=== PATIENT | female | born 2000 | race Caucasian/White ===

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

== ENCOUNTER → 2020-12-01 14:49 | Outpatient (CLI) | payer OTHER, SELFPAY | PROVIDERS: PCP Family Medicine; Visit Provider Family Medicine | DX: U07.1 COVID-19 (principal) | CPT/HCPCS: 87635; U0005; U0003 ==

== ENCOUNTER 2022-06-19 17:07 | Emergency (ER) | payer BC, SELFPAY ==
[2022-06-19 17:10] VITALS: BP 121/78; PULSE 110; RESP 17; TEMP 36.4; O2SAT 100; BMI 17.7
--- NOTE | 2022-06-19 17:26 | ED.VIS.FEGU ---
HPI HPI - Female History of Present Illness Chief Complaint: Vag Bld, Preg Informant: patient Narrative Narrative: Patient is G1, P0, Ab0 presenting with some mild vaginal bleeding. She reports some dark-colored discharge that started today. She had some mild cramping. She believes she is approximately 9 weeks . PFSH PFSH Medical History no medical history no medical history Home Medications fluoxetine 20 mg capsule 40 mg PO DAILY 06/13/17 [History Last Taken 06/13/17] lorazepam 0.5 mg tablet 0.5 mg PO TID PRN Anxiety ##10 07/09/18 [Rx Last Taken Unknown] ondansetron 4 mg disintegrating tablet 4 mg PO Q8H PRN PRN Nausea ##10 07/09/18 [Rx Last Taken Unknown] sulfamethoxazole 800 mg-trimethoprim 160 mg tablet 1 tab PO BID #14 tabs 06/08/19 [Rx Last Taken Unknown] Allergy/AdvReac Type Severity Reaction Status Date / Time No Known Allergies Allergy Verified 06/19/22 17:09 Surgical History no surgical history no surgical history Social History Smoking Status: Former smoker ROS ROS ED Constitutional Constitutional ED: Denies chills or fever(s) Eyes Eyes: Denies change in vision or discharge from eye(s) ENT ENT ED: Denies discharge from eye(s), rhinorrhea or sore throat Cardiovascular Cardiovascular: Denies chest pain or palpitations Respiratory/Chest Respiratory/Chest: Denies cough or dyspnea Gastrointestinal Gastrointestinal: Reports abdominal pain; Denies diarrhea, nausea or vomiting Genitourinary Genitourinary ED: Reports other Details: Vaginal bleeding ; Denies difficulty urinating or dysuria Musculoskeletal Musculoskeletal: Denies back pain or extremity pain Integumentary Denies Abrasions or rash Neurologic Neurologic: Denies headache(s) or weakness Psychiatric Psychiatric: Denies anxiety or depression Allergic/Immunologic Allergic/Immunologic ED: Denies lip swelling or urticaria EXAM Physical Exam Const Vital Signs: 06/19/22 17:10 Temperature 97.6 F L Temperature Source Temporal Pulse Rate 110 H Respiratory Rate 17 Blood Pressure 121/78 H Blood Pressure Mean 92 Pulse Ox 100 Oxygen Delivery Method Room Air Positive well nourished and well developed General Appearance ED: well developed HEENT Reports normocephalic and head/scalp atraumatic Eyes PERRL and EOMs intact bilaterally Neck supple Chest Wall inspection of chest normal and palpation of chest normal Resp normal respiratory effort and clear to auscultation bilaterally Cardio regular rate and regular rhythm GI soft to palpation and non-tender Auscultation: hypoactive bowel sounds Palpation: soft Back/Spine no CVA tenderness Extremity normal to inspection Neuro oriented x3 and no sensory deficits noted Sensorium / Orientation: alert Motor Exam: strength 5/5 throughout Psych mental status grossly normal Skin no rashes or lesions noted MDM MDM MDM Narrative Medical decision making narrative: Quant and blood type obtained. Pelvic ultrasound ordered. Lab Data Attestation: I reviewed the patient's lab results. Labs: Laboratory Results - last 24 hr 06/19/22 06/19/22 17:45 17:45 HCG, Quant 1327 H Blood Type O POSITIVE Radiography Diagnostic Testing: Clinical Impression(s) from Imaging Studies Obstetrics Ultrasound 06/19/22 17:54 IMPRESSION: Small fluid collection within the uterus which is low lying. Differential diagnosis includes early IUP with embryonic pole and yolk sac below the limits of sonographic resolution, blighted ovum and pseudo-gestational sac. Correlation with serum quantitative beta-hCG and follow up ultrasound is recommended. The possibility of ectopic cannot be excluded on the basis of this exam. There is 17mm right ovarian possible hemorrhagic cyst. This is less likely an ectopic (one in [id number] chance of a heterotopic ). Electronically Signed: Cedric Santillan MD at 19:54 EDT Reading Location ID and State: [facility] / [place] , Service support , Treatment and Re-Evaluation Narrative: Patient's quant is 1327. Her blood type is O+. Ultrasound reveals a small fluid collection in the uterus which is low-lying. This may be a early intrauterine with embryonic pole and yolk sac below limits of sonographic resolution. This also could represent a blighted ovum and pseudo gestational sac. I spoke with Dr. Kimberlee Tanner, on-call for [facility]. Patient is to follow-up with the office on Monday. They will repeat the quant level at that time. Patient now tells me she already has appointment scheduled at 10 AM on [place]. Return instructions have been given. Discharge Plan Triage Chief Complaint: Vag Bld, Preg ED Provider: Conchis Hopkins Dx/Rx/DC Orders Clinical Impression: Threatened miscarriage Instructions: ED Possible Miscarriage ... Prescriptions: No Action fluoxetine 20 MG capsule 40 mg PO DAILY ondansetron 4 MG tablet 4 mg PO Q8H PRN PRN (Reason: Nausea) Qty: 10 0RF lorazepam 0.5 MG tablet 0.5 mg PO TID PRN (Reason: Anxiety) Qty: 10 0RF sulfamethoxazole-trimethoprim 1 TABLET tablet 1 tab PO BID Qty: 14 0RF Primary Care Provider: Vini Hussein Referrals: Vini Hussein MD [Primary Care Provider] - Michell Pop REDUCING SALON ATTENDANT, REDUCING SALON ATTENDANT-C [Non-Staff] - [facility] appointment Disposition Disposition: Home, Self Care
--- NOTE | 2022-06-19 17:54 | US_ITS ---
STUDY: FIRST TRIMESTER OBSTETRICAL ULTRASOUND REASON FOR EXAM: Female, 22 years old. Other, brown discharge, lmp 04/10/22- certain w/ regular periods. hcg drawn today 1327. bleeding TECHNIQUE: Transvaginal US was obtained to better visualized the ovaries. TECHNICAL QUALITY: Adequate. PRIOR ULTRASOUND: None. FINDINGS: There is a gestational sac in the lower uterine segment. The mean sac diameter (MSD) measures 5.5 mm, indicating an estimated gestational age (EGA) of 5 weeks, 2 days. The gestational sac shape is within normal limits. There is no demonstrated yolk sac. The placenta is non-visualized. There is no demonstrated embryo ( pole). The estimated gestation age (EGA) by LMP is 10 weeks, 0 days. The estimated date of delivery (LISETTE) by LMP is 4.2.23. The estimated gestation age (EGA) by US is 5 weeks, 2 days. The estimated date of delivery (LISETTE) by US is 5.5.23. The uterus measures 7.8 x 4.6 cm. There is no demonstrated uterine fibroid. The cervix is closed. The right ovary is 3.2cm. There is 17mm right ovarian possible hemorrhagic cyst. There is no visualized right adnexal mass or complex lesion. The left ovary measures 2.8 cm. There is no left ovarian cyst. There is no visualized left adnexal mass or complex lesion. There is no fluid in the cul de sac. US/Transvaginal w/Preg US IMPRESSION: Small fluid collection within the uterus which is low lying. Differential diagnosis includes early IUP with embryonic pole and yolk sac below the limits of sonographic resolution, blighted ovum and pseudo-gestational sac. Correlation with serum quantitative beta-hCG and follow up ultrasound is recommended. The possibility of ectopic cannot be excluded on the basis of this exam. There is 17mm right ovarian possible hemorrhagic cyst. This is less likely an ectopic (one in 13544 chance of a heterotopic ). Electronically Signed: Cedric Santillan MD at 19:54 EDT ,
[2022-06-19 18:30] LABS: hCG Titer Quant., Serum 1327 mIU/mL (1-3)
== END 2022-06-19 21:00 | disposition home or self-care (01) ==
PROVIDERS: Emergency Provider Emergency Medicine; PCP Family Medicine; Visit Provider Emergency Medicine
DX: O20.0 Threatened abortion (principal); Z3A.09 9 weeks gestation of pregnancy; Z79.899 Other long term (current) drug therapy; Z87.891 Personal history of nicotine dependence
CPT/HCPCS: 76817; 84702; 86900; 86901; 99283; A4216

== ENCOUNTER 2023-09-25 17:56 | Emergency (ER) | payer BC, SELFPAY ==
[2023-09-25 17:56] VITALS: BP 124/81; PULSE 85; RESP 16; TEMP 36.4; O2SAT 100; BMI 17.9
--- NOTE | 2023-09-25 19:00 | US_ITS ---
STUDY: FIRST TRIMESTER OBSTETRICAL ULTRASOUND REASON FOR EXAM: Female, 23 years old bleeding in LMP: 08/17/2023 TECHNIQUE: Transvaginal TECHNICAL QUALITY: Adequate. PRIOR ULTRASOUND: None. FINDINGS: There is visualization of a single gestational sac in a normal intrauterine position. The mean sac diameter (MSD) measures 6 mm, indicating an estimated gestational age (EGA) of 5 weeks, 2 days. The gestational sac shape is within normal limits. There is a visualized yolk sac. The yolk sac measures 2 mm. The placenta is non-visualized. There is no demonstrated embryo ( pole).. The estimated gestation age (EGA) by LMP is 5 weeks, 4 days. The estimated date of delivery (LISETTE) by LMP is 05/23/2024. The estimated gestation age (EGA) by US is 5 weeks, 2 days. The estimated date of delivery (LISETTE) by US is 05/25/2024. The uterus measures 7.9 x 4.3 x 3.57. There is no demonstrated uterine fibroid. The cervix is closed. The right ovary measures 3.3 x 1.8 x 1.6 cm. There is no right ovarian cyst. There is no visualized right adnexal mass or complex lesion. The left ovary measures 4.4 x 3.3 x 2.6 cm. 2.2 cm oval anechoic mass with increased transmission of the left ovary consistent with a thecal lutein cyst. There is no visualized left adnexal mass or complex lesion. There is no fluid in the cul de sac. US/Transvaginal w/Preg US IMPRESSION: Early intrauterine gestational sac of 5 weeks 2 days but no identifiable pole. Differential diagnosis includes an early intrauterine or an incomplete . Correlation with serial beta-hCG measurements is recommended. Electronically Signed: Alex Mares MD at 20:58 EST ,
--- NOTE | 2023-09-25 19:01 | ED.VIS.FEGU ---
HPI <SARA Cruz - Last Filed: 09/25/23 21:07> HPI - Female History of Present Illness Chief Complaint: Vag Bld, Preg Narrative Narrative: 23-year-old A1 states she is approximately 6 weeks by dates and developed vaginal bleeding this morning. She had pink blood on the toilet paper when she wiped this morning and later in the day red blood filled the toilet bowl and she developed abdominal cramping. No clots. No fever, chills, nausea or vomiting. She sees COMMISSARY REPRESENTATIVE Martha Farrell at [facility]. She had an ultrasound 1 week ago but it was too early to see anything. She states they checked blood work last week and her quant went from 100s to 400s. Her only other was a first trimester miscarriage. PFSH <SARA Cruz - Last Filed: 09/25/23 21:07> PFS Home Medications fluoxetine 20 mg capsule 40 mg PO DAILY 06/13/17 [History Last Taken 06/13/17] lorazepam 0.5 mg tablet 0.5 mg PO TID PRN Anxiety #10 tabs 07/09/18 [Rx Last Taken Unknown] ondansetron 4 mg disintegrating tablet 4 mg PO Q8H PRN PRN Nausea #10 tabs 07/09/18 [Rx Last Taken Unknown] sulfamethoxazole 800 mg-trimethoprim 160 mg tablet 1 tab PO BID #14 tabs 06/08/19 [Rx Last Taken Unknown] Allergy/AdvReac Type Severity Reaction Status Date / Time No Known Allergies Allergy Verified 09/25/23 17:59 Social History Smoking Status: Former smoker ROS <SARA Cruz - Last Filed: 09/25/23 21:07> ROS ED ROS Narrative Constitutional: Negative for fever, chills, malaise. GI: Positive for abdominal pain. Negative for nausea, vomiting, diarrhea, constipation, melena, hematochezia. : Negative for dysuria, hematuria or frequency. EXAM <SARA Cruz - Last Filed: 09/25/23 21:07> Physical Exam Narrative Exam Narrative: CONST: Patient sitting in no acute distress. EYES: Normal inspection. NECK: Normal inspection. RESP: No respiratory distress, CTAB. CVS: Regular rate and rhythm, no murmur, no gallop. ABD: Soft and nontender, no guarding or rebound, nondistended. Pelvic: Normal external genitalia, small amount of dark red/brown discharge from the cervical os but it does not appear open. SKIN: Color normal, no rash, warm, dry, intact. EXTREMITIES: Normal appearance, no pedal edema. NEURO: Oriented x4. PSYCH: Normal affect. Const Vital Signs: 09/25/23 17:56 09/25/23 21:24 Temperature 97.6 F L Temperature Source Temporal Pulse Rate 85 81 Respiratory Rate 16 16 Blood Pressure 124/81 H 118/62 Blood Pressure Mean 95 80 Pulse Ox 100 100 Oxygen Delivery Method Room Air <Indra Taylor MD - Last Filed: 09/25/23 23:07> Physical Exam Const Vital Signs: 09/25/23 17:56 09/25/23 21:24 Temperature 97.6 F L Temperature Source Temporal Pulse Rate 85 81 Respiratory Rate 16 16 Blood Pressure 124/81 H 118/62 Blood Pressure Mean 95 80 Pulse Ox 100 100 Oxygen Delivery Method Room Air MDM <SARA Cruz - Last Filed: 09/25/23 21:07> [facility] MDM Narrative Medical decision making narrative: History gathered from: Patient and mom Patient thinks she is 6 weeks and is having abdominal cramping and bleeding. She appears well and nontoxic. Vital signs stable. Abdomen is soft and nontender. CBC is within normal limits. Hemoglobin 13.6. hCG quant is 2264. Blood type is O+ so she doesn't need RhoGAM. Pelvic exam showed dark reddish-brown blood and no evidence of active bleeding. Somewhat limited visualization but I believe her cervical os is closed. Ultrasound shows early intrauterine gestational sac of 5 weeks 2 days but no identifiable pole. Differential diagnosis includes early intrauterine or incomplete . A call has been placed to her COMMISSARY REPRESENTATIVE to arrange close follow-up. Case was discussed with on-call COMMISSARY REPRESENTATIVE at her office Dr. Gallegos. States their office will be in touch to arrange close follow-up. I told her there is 1+ bacteria she recommended just culturing but no antibiotics at this point. Patient was informed of findings and all questions answered. She was discharged in stable condition. Differential: Threatened miscarriage, complete miscarriage, ectopic Lab Data Attestation: I reviewed the patient's lab results. Labs: Laboratory Results - last 24 hr 09/25/23 09/25/23 18:58 19:16 WBC 9.7 RBC 4.21 Hgb 13.6 Hct 39.8 MCV 94.5 MCH 32.3 H MCHC 34.2 RDW Std Deviation 39.8 RDW Coeff of Annie 11.6 Plt Count 200 MPV 9.9 Immature Gran % (Auto) 0.300 Neut % (Auto) 63.7 Lymph % (Auto) 28.1 [place] % (Auto) 7.0 Eos % (Auto) 0.3 Baso % (Auto) 0.6 Absolute Neuts (auto) 6.2 Absolute Lymphs (auto) 2.72 Nucleated RBC % 0 HCG, Quant 2264 H Urine Color Yellow Urine Clarity Clear Urine pH 5.0 Ur Specific [place] 1.020 Urine Protein Negative Urine Glucose (UA) Normal Urine Ketones 150 A* Urine Occult Blood 250 H Urine Nitrite Negative Urine Bilirubin Negative Urine Urobilinogen Normal Ur Leukocyte Esterase 25 H Urine RBC 5-10 SEEN Urine WBC 0-5 SEEN Ur Squamous Epith Cells 0-5 SEEN Urine Bacteria 1+ Urine Mucus 1+ Blood Type O POSITIVE Radiography Diagnostic Testing: Clinical Impression(s) from Imaging Studies Obstetrics Ultrasound 09/25/23 19:00 IMPRESSION: Early intrauterine gestational sac of 5 weeks 2 days but no identifiable pole. Differential diagnosis includes an early intrauterine or an incomplete . Correlation with serial beta-hCG measurements is recommended. Electronically Signed: Alex Mares MD at 20:58 EST , <Indra Taylor MD - Last Filed: 09/25/23 23:07> [facility] MDM Narrative Medical decision making narrative: History gathered from: Patient and mom Patient thinks she is 6 weeks and is having abdominal cramping and bleeding. She appears well and nontoxic. Vital signs stable. Abdomen is soft and nontender. CBC is within normal limits. Hemoglobin 13.6. hCG quant is 2264. Blood type is O+ so she doesn't need RhoGAM. Pelvic exam showed dark reddish-brown blood and no evidence of active bleeding. Somewhat limited visualization but I believe her cervical os is closed. Ultrasound shows early intrauterine gestational sac of 5 weeks 2 days but no identifiable pole. Differential diagnosis includes early intrauterine or incomplete . A call has been placed to her COMMISSARY REPRESENTATIVE to arrange close follow-up. Case was discussed with on-call COMMISSARY REPRESENTATIVE at her office Dr. Gallegos. States their office will be in touch to arrange close follow-up. I told her there is 1+ bacteria she recommended just culturing but no antibiotics at this point. Patient was informed of findings and all questions answered. She was discharged in stable condition. Differential: Threatened miscarriage, complete miscarriage, ectopic Dr. Taylor: I have personally performed a face to face assessment of the patient and have reviewed the SARINA Note. I performed a substantive portion of the visit including all aspects of the following. My choi findings include: History is patient approximately 6 weeks gestation with pelvic pain and reported vaginal bleeding/pink-tinged. Exam is afebrile. Vital signs noted. Regular rate and rhythm. Lungs clear to auscultation bilaterally. Abdomen soft and nontender without rebound or guarding. Normoactive bowel sounds. Medical Decision Making: Check labs. Check quantitative hCG. Check pelvic ultrasound. Check pelvic examination. Follow-up with COMMISSARY REPRESENTATIVE after discussion. Discharge. Other additions or changes: [None] History & Record Review Discussion w/independent historian: Patient Additional record(s) reviewed:: Prior ED visit Lab Data Labs: Laboratory Results - last 24 hr 09/25/23 09/25/23 18:58 19:16 WBC 9.7 RBC 4.21 Hgb 13.6 Hct 39.8 MCV 94.5 MCH 32.3 H MCHC 34.2 RDW Std Deviation 39.8 RDW Coeff of Annie 11.6 Plt Count 200 MPV 9.9 Immature Gran % (Auto) 0.300 Neut % (Auto) 63.7 Lymph % (Auto) 28.1 [place] % (Auto) 7.0 Eos % (Auto) 0.3 Baso % (Auto) 0.6 Absolute Neuts (auto) 6.2 Absolute Lymphs (auto) 2.72 Nucleated RBC % 0 HCG, Quant 2264 H Urine Color Yellow Urine Clarity Clear Urine pH 5.0 Ur Specific [place] 1.020 Urine Protein Negative Urine Glucose (UA) Normal Urine Ketones 150 A* Urine Occult Blood 250 H Urine Nitrite Negative Urine Bilirubin Negative Urine Urobilinogen Normal Ur Leukocyte Esterase 25 H Urine RBC 5-10 SEEN Urine WBC 0-5 SEEN Ur Squamous Epith Cells 0-5 SEEN Urine Bacteria 1+ Urine Mucus 1+ Blood Type O POSITIVE Radiography Diagnostic Testing: Clinical Impression(s) from Imaging Studies Obstetrics Ultrasound 09/25/23 19:00 IMPRESSION: Early intrauterine gestational sac of 5 weeks 2 days but no identifiable pole. Differential diagnosis includes an early intrauterine or an incomplete . Correlation with serial beta-hCG measurements is recommended. Electronically Signed: Alex Mares MD at 20:58 EST , Discharge Plan Triage Chief Complaint: Vag Bld, Preg ED Midlevel Provider: Kenya Montero ED Provider: Indra Taylor Dx/Rx/DC Orders Clinical Impression: Threatened Instructions: Miscarriage Threatened Prescriptions: No Action fluoxetine 20 MG capsule 40 mg PO DAILY ondansetron 4 MG tablet 4 mg PO Q8H PRN PRN (Reason: Nausea) Qty: 10 0RF lorazepam 0.5 MG tablet 0.5 mg PO TID PRN (Reason: Anxiety) Qty: 10 0RF sulfamethoxazole-trimethoprim 1 TABLET tablet 1 tab PO BID Qty: 14 0RF Primary Care Provider: Vini Hussein Referrals: Vini Hussein MD [Primary Care Provider] - Activity Restrictions/Additional Instructions: Call your COMMISSARY REPRESENTATIVE in the morning or send them a [employer] message and they will give you instructions on when to follow-up for repeat blood work. Disposition Disposition: Home, Self Care Discharge Date/Time: 09/25/23 21:25
[2023-09-25 19:26] LABS: Absolute Lymphocyte Count 2.72 X10^3/uL (0.83-4.51); Absolute Neutrophil Count 6.2 X10^3/uL (2.0-7.7); Basophil# 0.06 X10^3/uL; Basophil% 0.6 % (0-1); Eosinophil# 0.03 X10^3/uL; Eosinophils% 0.3 % (0-5); Hematocrit 39.8 % (37-47); Hemoglobin 13.6 g/dL (12.0-15.0); Lymphocyte # 2.72 X10^3/ul (0.83-4.51); Lymphocyte % 28.1 % (19-41); Mean Corp Hgb Conc 34.2 g/dL (32-36); Mean Corpuscular Hgb 32.3 pg (27.0-32.0); Mean Corpuscular Volume 94.5 fL (81-99); Mean Platelet Vol. 9.9 fl (6.2-12.0); Monocyte# 0.68 X10^3/uL; NRBC Flagged by Analyzer 0 % (0-5); Neutrophil # 6.15 X10^3/uL (2.7-7.7); Neutrophil % 63.7 % (47-70); Platelet Count 200 K/mm3 (150-450); RBC Distribution Width CV 11.6 % (11.6-14.6); RBC Distribution Width SD 39.8 fl (35.1-43.9); Red Blood Count 4.21 M/mm3 (4.2-5.4); White Blood Count 9.7 K/mm3 (4.4-11.0)
[2023-09-25] MEDS: Acetaminophen 500 MG Tablet 1000 MG PO (19:30)
[2023-09-25 19:44] LABS: Color, Urine Yellow (Yellow); Glucose, Dipstick Normal (Normal); Leukocyte Esterase-Dipstick 25 /ul (Negative); Nitrite-Dipstick Negative (Negative); Occult Blood-Urine 250 /ul (Negative); Protein-Dipstick Negative (Negative); Urine Bilirubin Dipstick Negative (Negative); Urine Clarity Clear (Clear); Urine Urobilinogen Normal (Normal)
[2023-09-25 20:01] LABS: hCG Titer Quant., Serum 2264 mIU/mL (1-3)
[2023-09-25 20:02] LABS: Ketone-Dipstick 150 mg/dl (Negative)
[2023-09-25 20:03] LABS: Bacteria 1+ /hpf (None Seen); Mucous, Urine 1+ /hpf (<or=2+); Red Blood Cells-Urine 5-10 SEEN /hpf (0-5); Squamous Epithelial Cells - UA 0-5 SEEN /hpf (5-10); White Blood Cells 0-5 SEEN /hpf (0-5)
[2023-09-25 21:24] VITALS: BP 118/62; PULSE 81; RESP 16; O2SAT 100
== END 2023-09-25 21:25 | disposition home or self-care (01) ==
PROVIDERS: Physician Assistant; Emergency Provider Emergency Medicine; PCP Family Medicine; Visit Provider Emergency Medicine
DX: O20.0 Threatened abortion (principal); O26.891 Other specified pregnancy related conditions, first trimester; Z87.891 Personal history of nicotine dependence; Z3A.01 Less than 8 weeks gestation of pregnancy; R10.9 Unspecified abdominal pain
CPT/HCPCS: 76817; 81001; 84702; 85025; 86900; 86901; 87086; 99283; A4216

== ENCOUNTER 2023-11-04 16:09 | Emergency (ER) | payer BC, SELFPAY ==
[2023-11-04 16:12] VITALS: BP 111/70; PULSE 82; RESP 16; TEMP 36.5; O2SAT 100; BMI 17.5
--- NOTE | 2023-11-04 16:28 | ED.VIS.FEGU ---
HPI HPI - Female History of Present Illness Chief Complaint: Informant: patient Associated Symptoms P: 1 Ab: 1 (spontaneous) Narrative Narrative: Patient states she is 11 weeks by dates and has been having an unusual vaginal discharge for the past week or so, started getting some cramping today and thought that there was a very scant amount of blood in some of the discharge at 1 point. It is mucousy and yellowish otherwise. The cramping is more to the left side. She denies any syncope, nausea, vomiting, urinary symptoms. The cramping radiates into her low back. She denies any janelle vaginal bleeding. She follows with Martha Farrell at [facility]. She is already had an ultrasound for this baby showed an IUP. Denies any other systemic symptoms. Cramping was gradual in onset. PFSH PFSH Home Medications fluoxetine 20 mg capsule 40 mg PO DAILY 06/13/17 [History Last Taken 06/13/17] lorazepam 0.5 mg tablet 0.5 mg PO TID PRN Anxiety #10 tabs 07/09/18 [Rx Last Taken Unknown] ondansetron 4 mg disintegrating tablet 4 mg PO Q8H PRN PRN Nausea #10 tabs 07/09/18 [Rx Last Taken Unknown] sulfamethoxazole 800 mg-trimethoprim 160 mg tablet 1 tab PO BID #14 tabs 06/08/19 [Rx Last Taken Unknown] Allergy/AdvReac Type Severity Reaction Status Date / Time No Known Allergies Allergy Verified 11/04/23 16:11 Social History Smoking Status: Former smoker ROS ROS ED Constitutional Constitutional ED: Denies chills or fever(s) Cardiovascular Cardiovascular: Denies chest pain or leg edema Respiratory/Chest Respiratory/Chest: Denies dyspnea Gastrointestinal Gastrointestinal: Reports abdominal pain; Denies diarrhea, nausea or vomiting Genitourinary Genitourinary ED: Denies dysuria or hematuria Musculoskeletal Musculoskeletal: Reports back pain; Denies neck pain Neurologic Neurologic: Denies headache(s), paresthesias or weakness EXAM Physical Exam Const Vital Signs: 11/04/23 16:12 Temperature 97.7 F L Temperature Source Temporal Pulse Rate 82 Respiratory Rate 16 Blood Pressure 111/70 Blood Pressure Mean 83 Pulse Ox 100 Oxygen Delivery Method Room Air Positive well nourished and well developed General Appearance ED: well developed and NAD HEENT Reports moist mucous membranes Eyes PERRL and EOMs intact bilaterally Neck supple Resp normal respiratory effort and clear to auscultation bilaterally Cardio regular rate, regular rhythm and no murmurs GI soft to palpation and non-distended GI Narrative: Mild subjective diffuse pelvis tenderness that the patient states is a little worse on the left. No guarding or rebound. Auscultation: normoactive bowel sounds Back/Spine no CVA tenderness Extremity normal to inspection and full ROM Neuro oriented x3, CN's II-XII intact bilaterally and no sensory deficits noted Motor Exam: strength 5/5 throughout Psych mental status grossly normal Skin no rashes or lesions noted and no wounds MDM MDM MDM Narrative Medical decision making narrative: Old measurement of her blood type shows that she is a positive so RhoGAM not indicated. I did a bedside ultrasound of baby/fetus, there is plenty of good movement and heart tones are 166. Reassured patient. I discussed with Dr. Tanner, she was on for OB and agrees patient can be discharged home with close outpatient follow-up does not recommend any emergent testing on discharge right now which sounds like a normal discharge from what I describe. The patient confirms to me that she has had no recent exposures that she considers high risk for another STD, and although she was probably tested for GC/chlamydia in the office initially, she is seen at the [facility] and I do not have those records available right now. Patient reassured and advised to follow-up as an outpatient. History & Record Review Additional record(s) reviewed:: Prior labs (Blood type O+) Discharge Plan Triage Chief Complaint: ED Provider: Junior Short Dx/Rx/DC Orders Clinical Impression: Vaginal discharge during in first trimester, Pelvic pain affecting in first trimester, antepartum Instructions: ED Abdominal Pain, Early Prescriptions: No Action fluoxetine 20 MG capsule 40 mg PO DAILY ondansetron 4 MG tablet 4 mg PO Q8H PRN PRN (Reason: Nausea) Qty: 10 0RF lorazepam 0.5 MG tablet 0.5 mg PO TID PRN (Reason: Anxiety) Qty: 10 0RF sulfamethoxazole-trimethoprim 1 TABLET tablet 1 tab PO BID Qty: 14 0RF Primary Care Provider: Vini Hussein Referrals: Martha Farrell CNM [Med Staff - Adv Practice Prof] - 3-5 Days Vini Hussein MD [Primary Care Provider] - Disposition Disposition: Home, Self Care
--- OUTSIDE RECORDS SUMMARY | 2023-11-04 16:32 | XMS RPT_ITS | CCD ---
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 Name Role Phone Eliezer Leo MD Primary Care Provider Colby Hussein MD Primary Care Provider Eliezer Leo MD Primary Care Provider Colby Hussein MD Primary Care Provider DAYNA FARRELL Referring Unavailable COLBY HUSSEIN Primary Care Unavailabl e DAYNA FARRELL Attending Unavailable DAYNA FARRELL Referring Unavailable COLBY HUSSEIN Primary Care Unavailabl e DINAH DAYNA Referring Unavailable JJ GORMAN Attending Unavailable COLBY HUSSEIN Primary Care Unavailabl DARYN Millan Referring Unavailable COLBY HUSSEIN Primary Care Unavailabl DARYN Millan Referring Unavailable COLBY HUSSEIN Primary Care Unavailabl e DINAH DAYNA Referring Unavailable COLBY HUSSEIN Primary Care Unavailabl e DAYNA FARRELL Referring Unavailable COLBY HUSSEIN Primary Care Unavailabl e DAYNA FARRELL Attending Unavailable DAYNA FARRELL Referring Unavailable COLBY HUSSEIN Primary Care Unavailabl e DAYNA FARRELL Attending Unavailable COLBY HUSSEIN Primary Care UnavailELIEZER Mcmahan Primary Care Unavailable ELIEZER LEO Primary Care Unavailable DAYNA FARRELL Attending Unavailable COLBY HUSSEIN Primary Care Unavailabl JADE Sharma Attending Unavailable COLBY HUSSEIN Primary Care Unavailabl e Medications Current Medications Medication Drug Class(es) Dates Sig (Normalized) Sig (Original) predniSONE 10 mg oral tablet (1 source) Start: 06-14-2023 End: 06-21-2023 take 4 tablets by mouth once daily, then take 2 tablets by mouth once daily, then take 1 tablet by mouth once daily predniSONE (DELTASONE) 10 mg tablet Indications: Rash of face Take 4 tablets by mouth once daily for 3 days, THEN 2 tablets once daily for 2 days, THEN 1 tablet once daily for 2 days. Take with food.. 18 tablet 0 06/14/2023 06/21/2023 Active Completed/Discontinued Medications Medication Drug Class(es) Dates Sig (Normalized) Sig (Original) metroNIDAZOLE 500 mg oral tablet (2 sources) Nitroimidazole Antimicrobial Start: 08-31-2022 End: 09-07-2022 take 1 tablet by mouth twice daily metroNIDAZOLE (FLAGYL) 500 mg tablet Indications: BV (bacterial vaginosis) Take 1 tablet by mouth twice daily for 7 days. 14 tablet 0 08/31/2022 09/07/2022 Problems Active Problems Problem Classification Problem Date Documented Date Episodic/Chronic Anxiety disorders (12 sources) Anxiety disorder; Translations: [Anxiety disorder, unspecified] Onset: 02-07-2014 02-07-2014 Chronic Disorders usually diagnosed in infancy, childhood, or adolescence (12 sources) Attention deficit hyperactivity disorder, predominantly inattentive type; Translations: [Other specified behavioral and emotional disorders with onset usually occurring in childhood and adolescence] Onset: 02-07-2014 02-07-2014 Chronic Hemorrhage during ; abruptio placenta; placenta previa (1 source) Threatened miscarriage; Translations: [Threatened ] Episodic Inflammatory diseases of female pelvic organs (1 source) Bacterial vaginosis; Translations: [Acute vaginitis] Episodic Menstrual disorders (20 sources) Irregular periods; Translations: [Irregular menstruation, unspecified] Onset: 07-03-2014 07-03-2014 Chronic Mood disorders (12 sources) Depressive disorder; Translations: [Depression] Onset: 12-27-2012 10-11-2021 Chronic Other complications of (3 sources) High risk ; Translations: [Supervision of other high risk pregnancies, first trimester] Onset: 09-18-2023 09-18-2023 Episodic Other complications of (1 source) Spotting per vagina in ; Translations: [Spotting complicating , first trimester] 09-25-2023 Episodic Other complications of (1 source) Spotting complicating , first trimester; Translations: [Spotting complicating , first trimester] Onset: 10-02-2023 Episodic Other female genital disorders (2 sources) Vaginal bleeding; Translations: [Postcoital and contact bleeding] Chronic Other and delivery including normal (4 sources) Normal ; Translations: [Encounter for supervision of normal first , unspecified trimester] Onset: 10-03-2023 Episodic Other skin disorders (1 source) Eruption; Translations: [Rash and other nonspecific skin eruption] 06-14-2023 Episodic Other upper respiratory infections (1 source) Sore throat symptom; Translations: [Acute pharyngitis, unspecified] Episodic Residual codes; unclassified (3 sources) H/O: miscarriage; Translations: [Personal history of other complications of , childbirth and the puerperium] Onset: 09-18-2023 09-18-2023 Episodic Residual codes; unclassified (1 source) 10 weeks gestation of ; Translations: [10 weeks gestation of ] Onset: 10-11-2023 Episodic Residual codes; unclassified (1 source) 8 weeks gestation of ; Translations: [8 weeks gestation of ] Onset: 10-03-2023 Episodic Spontaneous (1 source) with abortive outcome; Translations: [Complete or unspecified spontaneous without complication] Episodic Substance-related disorders (13 sources) History of drug abuse; Translations: [Other psychoactive substance abuse, in remission] Onset: 06-16-2022 Chronic Past or Other Problems Problem Classification Problem Date Documented Da te Episodic/Chronic Malaise and fatigue (12 sources) Fatigue; Translations: [Other fatigue] Onset: 09-20-2013 09-20-2013 Episodic Other skin disorders (12 sources) Acne; Translations: [Acne, unspecified] Onset: 12-27-2012 12-27-2012 Episodic Screening and history of mental health and substance abuse codes (20 sources) H/O: depression; Translations: [Personal history of other mental and behavioral disorders] Onset: 06-16-2022 Episodic Results Test Name Value Interpretation Reference Range Facil ity Vital Signs Date Time Vital Sign Value Performing Clinician Bertram barfield 06-14-2023 17:54-0400 Body temperature 98.4 [degF] Palmer Barbour MD Work Phone: [facility] 06-14-2023 17:54-0400 Body weight 42.91 kg Palmer Barbour MD Work Phone: [facility] 06-14-2023 17:54-0400 Diastolic blood pressure 64 mm[Hg] Palmer Barbour MD Work Phone: [facility] 06-14-2023 17:54-0400 Heart rate 80 /min Palmer Barbour MD Work Phone: [facility] 06-14-2023 17:54-0400 Respiratory rate 16 /min Palmer Barbour MD Work Phone: [facility] 06-14-2023 17:54-0400 Systolic blood pressure 100 mm[Hg] Palmer Barbour MD Work Phone: [facility] 12-29-2022 16:04-0400 Body temperature 98.4 [degF] Krislyn Aberegg PA Work Phone: [facility] 12-29-2022 16:04-0400 Body weight 42.19 kg Krislyn Aberegg PA Work Phone: [facility] 12-29-2022 16:04-0400 Diastolic blood pressure 64 mm[Hg] Krislyn Aberegg PA Work Phone: [facility] 12-29-2022 16:04-0400 Heart rate 69 /min Krislyn Aberegg PA Work Phone: [facility] 12-29-2022 16:04-0400 Respiratory rate 18 /min Krislyn Aberegg PA Work Phone: [facility] 12-29-2022 16:04-0400 SaO2% (BldA) [Mass fraction] 97 % Krislyn Aberegg PA Work Phone: [facility] 12-29-2022 16:04-0400 Systolic blood pressure 102 mm[Hg] Krislyn Aberegg PA Work Phone: [facility] 08-30-2022 14:12-0500 Body weight 41.91 kg Michell Slayden CREDIT REFERENCE CLERK.FILM AND VIDEO EDITOR Work Phone: [facility] 08-30-2022 14:12-0500 Diastolic blood pressure 60 mm[Hg] Michell Donn CREDIT REFERENCE CLERK.FILM AND VIDEO EDITOR Work Phone: [facility] 08-30-2022 14:12-0500 Systolic blood pressure 92 mm[Hg] Michell Donn CREDIT REFERENCE CLERK.FILM AND VIDEO EDITOR Work Phone: [facility] 06-23-2022 11:25-0400 Body weight 42.64 kg Cale Tanner MD Work Phone: [facility] 06-23-2022 11:25-0400 Diastolic blood pressure 56 mm[Hg] Cale Tanner MD Work Phone: [facility] 06-23-2022 11:25-0400 Systolic blood pressure 94 mm[Hg] Cale Tanner MD Work Phone: [facility] 06-21-2022 10:33-0400 Body weight 41.91 kg Cale Tanner MD Work Phone: [facility] 06-21-2022 10:33-0400 Diastolic blood pressure 58 mm[Hg] Cale Tanner MD Work Phone: [facility] 06-21-2022 10:33-0400 Systolic blood pressure 112 mm[Hg] Cale Tanner MD Work Phone: [facility] Encounters Encounter Date Encounter Type Care Provider Facility Start: 10-31-2023 End: 10-31-2023 ambulatory [facility] Facility:[facility] Start: 10-19-2023 End: 10-19-2023 ambulatory JADE MANTILLA Facility:[facility] Start: 10-11-2023 End: 10-12-2023 ambulatory [facility] Facility:[facility] Start: 10-03-2023 End: 10-03-2023 ambulatory [facility] Facility:[facility] Start: 10-02-2023 End: 10-03-2023 ambulatory DARYN CORONA Facility:[facility] Start: 09-27-2023 End: 09-28-2023 ambulatory DARYN CORONA Facility:[facility] Start: 09-25-2023 ambulatory Daynasymone Farrell APRN.CNM Work Phone: OB/Gynecology Procedures Date Procedure Procedure Detail Performing Clinician Start: 09-18-2023 Antibody screen DAYNA FARRELL Plan of Treatment Date Care Activity Detail Author Start: 11-16-2024 PAP TESTING PAP TESTING [facility] Start: 11-16-2024 Screening for malign ant neoplasm of cervix Pap Testing [facility] Start: 09-18-2024 Chlamydia Screening (18-24) Chlamydia Screening (18-24) [facility] Start: 09-18-2024 GC (Gonorrhea) Scree kathy (18-24) GC (Gonorrhea) Screening (18-24) [facility] Start: 09-18-2024 Screening for Chlamy irwin trachomatis Chlamydia Screening (18-24) [facility] Start: 06-16-2023 Influenza vaccination [facility] Start: 11-16-2022 CHLAMYDIA SCREENING (18-24) CHLAMYDIA SCREENING (18-24) [facility] Start: 11-16-2022 GC (GONORRHEA) SCREE KATHY (18-24) GC (GONORRHEA) SCREENING (18-24) [facility] Start: 06-21-2022 End: 08-21-2022 Choriogonadotropin.beta subunit [Units/volume] in Serum or Plasma [facility] Work Phone: Immunizations Immunization Date Immunization Notes Care Provider Rashmi valente 08-23-2019 Human Papillomavirus 9-valent vaccine Nurse Wstr Work Phone: [facility] Work Phone: 02-26-2019 Human Papillomavirus 9-valent vaccine Nurse Wstr Work Phone: [facility] Work Phone: 01-22-2018 Human Papillomavirus 9-valent vaccine Nurse Wstr Work Phone: [facility] 07-11-2017 influenza, injectabl e, quadrivalent, contains preservative Nurse Wstr Work Phone: [facility] 07-11-2017 meningococcal polysaccharide (groups A, C, Y and W-135) diphtheria toxoid conjugate vaccine (MCV4P) Nurse Wstr Work Phone: [facility] 07-11-2017 influenza virus vacc ine, unspecified formulation 1 Work Phone: [facility] 10-25-2012 influenza virus vacc ine, live, attenuated, for intranasal use Nurse Wstr Work Phone: [facility] 05-20-2005 diphtheria, tetanus toxoids and acellular pertussis vaccine Nurse Wstr Work Phone: [facility] Work Phone: 05-18-2005 measles, mumps and rubella virus vaccine Nurse Wstr Work Phone: [facility] Work Phone: 05-28-2001 measles, mumps and rubella virus vaccine Nurse Wstr Work Phone: [facility] Work Phone: 05-28-2001 varicella virus vaccine Nurs e Wstr Work Phone: [facility] Work Phone: 05-07-2001 hepatitis B vaccine, pediatric or pediatric/adolescent dosage Nurse Wstr Work Phone: [facility] Work Phone: 01-22-2001 diphtheria, tetanus toxoids and acellular pertussis vaccine Nurse Wstr Work Phone: [facility] Work Phone: 01-22-2001 haemophilus influenz ae type b vaccine, HbOC conjugate Nurse Wstr Work Phone: [facility] Work Phone: 01-22-2001 poliovirus vaccine, inactivated Nurse Wstr Work Phone: [facility] Work Phone: 2000 diphtheria, tetanus toxoids and acellular pertussis vaccine Nurse Wstr Work Phone: [facility] Work Phone: 2000 haemophilus influenz ae type b vaccine, HbOC conjugate Nurse Wstr Work Phone: [facility] Work Phone: 2000 hepatitis B vaccine, pediatric or pediatric/adolescent dosage Nurse Wstr Work Phone: [facility] Work Phone: 2000 poliovirus vaccine, inactivated Nurse Wstr Work Phone: [facility] Work Phone: 2000 diphtheria, tetanus toxoids and acellular pertussis vaccine Nurse Wstr Work Phone: [facility] Work Phone: 2000 haemophilus influenz ae type b vaccine, HbOC conjugate Nurse Wstr Work Phone: [facility] Work Phone: 2000 hepatitis B vaccine, pediatric or pediatric/adolescent dosage Nurse Wstr Work Phone: [facility] Work Phone: 2000 poliovirus vaccine, inactivated Nurse Wstr Work Phone: [facility] Work Phone: Payers Date Payer Category Payer Unknown [id number] 2009 Unknown [id number] Social History Date Type Detail Facility Start: 06-16-2022 End: 06-21-2022 Tobacco smoking status NHIS Ex-smoker [facility] Work Phone: End: 06-02-2022 History of tobacco use Current smoker [facility] Work Phone: End: 06-02-2022 History of tobacco use Cigarette Smoker [facility] Work Phone: Start: 06-16-2022 End: 06-21-2022 Tobacco use and exposure Smokeless tobacco non-user [facility] Work Phone: Start: 06-16-2022 End: 09-18-2023 Alcohol intake Current non-drinker of alcohol (finding) [facility] Start: 06-16-2022 Education 11 [facility] Start: 06-16-2022 Tobacco Comment mother outside [facility] Start: 04-25-2022 [facility] Start: 2000 Sex Assigned At Not on file C [facility] Start: 06-06-2022 End: 06-23-2022 Exposure to SARS-CoV-2 (event) Not sure [facility] Work Phone: Start: 06-14-2023 End: 09-18-2023 History of Social function [facility] Start: 06-14-2023 End: 09-18-2023 Tobacco use panel [facility] National Score (1-10 0), lower number is lower risk 46 [facility] Goals Date Patient Goal Desired Activity /State Personal health goal Clinical Notes 06-16-2022 to 09-26-2023 Telephone Encounter - Conchis Bee RN - 09/26/2023 4:06 PM ESTTelephone Encounter - Conchis Bee RN - 09/25/2023 4:57 PM Dayna Shea APRN.CN - 09/20/2023 12:58 PM EST Note Date & Type Note Facility 09-26-2023 Miscellaneous Notes Patient was seen in [facility] ER yesterday. See [employer] message. Left message for patient to call the office or view [employer] message. Please leave open for hCG quants. Conchis Bee RN Review bleeding precautions. Check quants Mon/Wed or Tu/Thurs this week and we will go from there. I believe she has f/u US scheduled. Based on blood work we may need to move that appointment. Daryn Corona MD 9w0d Patient called with c/o light pink spotting that began this morning. Noted on TP and a small amount on a pad. Mild cramping. Had intercourse 2 days ago. Hx of missed AB last . Advised to call the office if her pain worsens or if her spotting increases while waiting to hear back from the office today. Conchis Bee RN documented in this encounter [facility] 09-26-2023 Miscellaneous Notes Reviewed. Since visit at [facility], IUP seen but no pole, reassuring from first visit that early gestation. Will keep daljit with US and follow up with me on 10/03. Review bleeding precautions. Thank you, Dayna Farrell APRN.CNM [facility] ER Report printed and to to review. documented in this encounter [facility] 09-20-2023 Note HNO ID: [id number] Author: Dayna Farrell APRN.CNM Service: ? Author Type: Restaurant Worker Type: Progress Notes Filed: 09/20/2023 12:59 PM Note Text: OB point of care ultrasound was performed. See imaging tab for details. Dayna Farrell APRN.CNM [facility] 09-20-2023 History of Presen t illness Narrative OB point of care ultrasound was performed. See imaging tab for details. Dayna Farrell APRN.CNM documented in this encounter [facility] 09-18-2023 Note HNO ID: [id number] Author: Dayna Farrell APRN.CNM Service: ? Author Type: Restaurant Worker Type: Progress Notes Filed: 09/18/2023 12:45 PM Note Text: INITIAL OB ASSESSMENT OB Provider: Dayna Farrell APRN CNM HPI: Laquita is a 23 year old White here to establish Obstetrical Care. Patient's last menstrual period was 07/24/2023 (exact date). from OB Dating Form. Cycles regular was unplanned but accepted Complaints: Anxiety OB History T0 L0 SAB1 IAB0 Ectopic0 Multiple0 Live Births0 Previous history: Prior : never History of 4th degree laceration: No History of shoulder dystocia: No History of Hypertensive disorders including pre-eclampsia, chronic hypertension or gestational hypertension: No History of gestational diabetes: No Patient's Risk Screening for delivery: Have you had a prior campbell between 20w and 36w6d?: No MEDICAL/PSYCHOSOCIAL HISTORY: History of hemorrhage or bleeding concerns: Yes, hemorrhagic cyst after miscarriage in 2021 Thyroid Disease: No History of chronic hypertension: No History of pre-existing diabetes: No No results found for: ABORHD No weight on file for this encounter. History of abnormal pap: No Prior treatment for cervical dysplasia: none. History of STDs: None Tobacco use: No Caffeine use: No Drug use: Yes - was smoking weed before finding out of Alcohol use: No Multivitamin with Folic acid: Yes Christian or heritage: No Would refuse blood transfusion if medically necessary: No Are you currently employed? Yes, Occupation: No Do you have any history of depression, anxiety, PTSD, eating disorders or other mood problems: Yes Do you have any safety concerns or history of traumatic events that you would like to discuss with your provider: No SDOH Screening: How often does this describe you? I don't have enough money to pay my bills: Never Within the past 12 months, have you worried that your food would run out before you had money to buy more: Never In the past 12 months, has lack of reliable transportation kept you from going to medical appointments or work, or from keeping things needed for daily living: Never In the past 12 months, have you had any concerns about having a place to live, or about the condition or quality of your housing: Never Are there any cultural or spiritual needs we should be aware of: No Depression/Anxiety Screening: denies symptoms of depression. OB Depression and Anxiety Screening- This Encounter (since 09/17/2023) Over the past 2 weeks have you felt down, depressed, or hopeless? Negative Over the past two weeks, have you felt little interest or pleasure in doing things?? Negative Feeling nervous, anxious or on edge 3-Nearly every day Not being able to stop or control worrying 3-Nearly every day Anxiety Pre-Screening Total (If >/= 3 additional questions will be reviewed) 6 Worrying too much about different things 3-Nearly every day Trouble relaxing 3-Nearly every day Being so restless that it is hard to sit still 0-Not al all Becoming easily annoyed or irritable 0-Not al all Feeling afraid, as if something awful might happen 3-Nearly every day Anxiety (NIKOLAY) Full Screening Total 15 Genetic Screening: Partner present: No Patient verbalized knowledge of partner family health history: Yes Do you or your partner have any personal or family history of defects not previously discussed: No Do you have history of a complicated by anomaly, genetic condition, or demise: No ACOG Recommended Screening Screening for early gestational diabetes testing: Criteria for early testing requires elevated BMI plus one other risk factor: No weight on file for this encounter. (risk factor if > than 25 or 23 in Americans) Additional risk factors: None She does not meet ACOG criteria for early gestational DM screening. 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 [facility] 06-14-2023 Note HNO ID: [id number] Author: Palmer Barbour MD Service: ? Author Type: Physician Type: Progress Notes Filed: 06/14/2023 6:19 PM Note Text: Patient presents with: Rash: on face x 5 days, headache used lotrimin made worse HPI: Rash: Location: face (more on the left cheek), neck Duration: 5 days Pruritis: Yes Pain: No Change: maybe worsening Bleeding/ulceration/blister/pus tule: red raised rash Contacts with rash: No Exposure: new face wash. Outdoor exposure: playing in playground. Recent illness: general headache, malaise, and sinus pressure last week. Treatment: lotrimin for suspected ringworm. Got rid of makeup brushes and new face wash. MEDICATIONS: prental multivitamin 27 mg iron- 800 mcg tablet Take 1 tablet by mouth once daily. (Patient not taking: Reported on 06/14/2023) ALLERGIES: ALLERGIES No Known Allergies VITALS: BP 100/64 Pulse 80 Temp 36.9 ?C (98.4 ?F) Resp 16 Wt 42.9 kg (94 lb 9.6 oz) LMP 08/17/2022 (Exact Date) BMI 17.59 kg/m? PHYSICAL EXAM: GEN: pleasant, no acute distress, alert SKIN: faint erythema which is slightly raised in irregular patches <1cm distributed over the Left greater than right cheek to TMJ and below the lip. Small amount of rash on the lateral neck bilaterally. ASSESSMENT/PLAN: 1. Rash of face - ICD9: 782.1, ICD10: R21 Appears to be contact dermatitis from playground or irritant dermatitis from face wash. - PREDNISONE 10 MG TABLET taper. Potential steroid side effects discussed including: Increased hunger, fluid retention, increased energy, sleep disturbance, mood change, elevated sugar levels. She will follow-up with her PCP if worsening or not improving. Palmer Barbour MD [facility] 06-14-2023 History of Presen t illness Narrative Patient presents with: Rash: on face x 5 days, headache used lotrimin made worse HPI: Rash: Location: face (more on the left cheek), neck Duration: 5 days Pruritis: Yes Pain: No Change: maybe worsening Bleeding/ulceration/blister/pus tule: red raised rash Contacts with rash: No Exposure: new face wash. Outdoor exposure: playing in playground. Recent illness: general headache, malaise, and sinus pressure last week. Treatment: lotrimin for suspected ringworm. Got rid of makeup brushes and new face wash. MEDICATIONS: prental multivitamin 27 mg iron- 800 mcg tablet Take 1 tablet by mouth once daily. (Patient not taking: Reported on 06/14/2023) ALLERGIES: ALLERGIES No Known Allergies VITALS: BP 100/64 Pulse 80 Temp 36.9 C (98.4 F) Resp 16 Wt 42.9 kg (94 lb 9.6 oz) LMP 08/17/2022 (Exact Date) BMI 17.59 kg/m PHYSICAL EXAM: GEN: pleasant, no acute distress, alert SKIN: faint erythema which is slightly raised in irregular patches <1cm distributed over the Left greater than right cheek to TMJ and below the lip. Small amount of rash on the lateral neck bilaterally. ASSESSMENT/PLAN: 1. Rash of face - ICD9: 782.1, ICD10: R21 Appears to be contact dermatitis from playground or irritant dermatitis from face wash. - PREDNISONE 10 MG TABLET taper. Potential steroid side effects discussed including: Increased hunger, fluid retention, increased energy, sleep disturbance, mood change, elevated sugar levels. She will follow-up with her PCP if worsening or not improving. Palmer Barbour MD documented in this encounter [facility] 12-29-2022 Note HNO ID: [id number] Author: SARA Quiroz Service: ? Author Type: Physician Radio Station Engineer Type: Progress Notes Filed: 12/29/2022 4:21 PM Note Text: This note was created using NoteWriter. Subjective Laquita Patterson is a 22 year old female. HPI 22-year-old female presents for sore throat and body aches. Patient states she has had a sore throat and body aches for a little over a week. No cough, runny nose, chest pain or shortness of breath. No vomiting or diarrhea. States she has been little nauseous. No concern for . States her brother recently had strep. No other sick contacts. PAST MEDICAL HISTORY Diagnosis Date Anemia Attempted suicide (HCC) 11/14/2016 [place] x 10 days Chlamydia Migraine with aura 2015 ocp's contraindicated NEGATIVE MEDICAL HISTORY 2012 normal color vision PAST SURGICAL HISTORY Procedure Laterality Date PAST SURGICAL HISTORY OF had france stuck in throat when was 1 year old ALLERGIES Patient has no known allergies. MEDICATIONS prental multivitamin 27 mg iron- 800 mcg tablet Take 1 tablet by mouth once daily. FAMILY HISTORY Problem Relation Age of Onset other (degenerative disc disease) Mother Bipolar disorder Mother Depression Father Anxiety disorder Father Alcohol abuse Father Anxiety disorder Brother ADD/ADHD Brother Breast Cancer Maternal Grandmother other (other) Maternal Grandfather Anxiety disorder Maternal Grandfather Depression Maternal Grandfather other (degenerative disc disease) Maternal Grandfather Depression Paternal Grandmother Depression Paternal Grandfather Anxiety disorder Half-sister Depression Half-sister No Known Problems Half-brother Depression Half-brother Anxiety disorder Half-brother Social History Tobacco Use Smoking status: Former Years: 2.00 Types: Cigarettes Smokeless tobacco: Never Vaping Use Vaping Use: current everyday user Quit date: 06/02/2022 Substances: Nicotine Substance Use Topics Alcohol use: No Drug use: Yes Types: Marijuana Review of Systems Constitutional: Negative for chills and fever. HENT: Positive for sore throat. Negative for congestion and ear pain. Respiratory: Negative for cough and shortness of breath. Cardiovascular: Negative for chest pain. Gastrointestinal: Positive for nausea. Negative for diarrhea and vomiting. Musculoskeletal: Positive for myalgias. Objective BP 102/64 Pulse 69 Temp 36.9 ?C (98.4 ?F) (Tympanic) Resp 18 Wt 42.2 kg (93 lb) LMP 08/17/2022 (Exact Date) SpO2 97% BMI 17.29 kg/m? Physical Exam Vitals and nursing note reviewed. Constitutional: General: She is not in acute distress. Appearance: Normal appearance. She is not toxic-appearing. HENT: Right Ear: Tympanic membrane and ear canal normal. Left Ear: Tympanic membrane and ear canal normal. Nose: Nose normal. Mouth/Throat: Mouth: Mucous membranes are moist. Pharynx: Uvula midline. Posterior oropharyngeal erythema present. No oropharyngeal exudate. Tonsils: No tonsillar exudate. Eyes: Conjunctiva/sclera: Conjunctivae normal. Cardiovascular: Rate and Rhythm: Normal rate and regular rhythm. Pulmonary: Effort: Pulmonary effort is normal. Breath sounds: Normal breath sounds. Neurological: Mental Status: She is alert. Assessment and Plan ASSESSMENT/PLAN: 1. Sore throat - ICD9: 462, ICD10: J02.9 - suspect viral - Alere Strep Test negative, no culture pending - Discussed supportive care treatment with fluids, rest and analgesia. - STREP A MOLECULAR (POC) Diagnosis and treatment plan were discussed and questions were answered to the patient's satisfaction. Pt acknowledged understanding of concepts and follow up plan. Specific signs and symptoms that would indicate the need for higher level of care were discussed in detail warranting prompt ER evaluation. SARA Quiroz [facility] 12-29-2022 Instructions SARA Quiroz - 12/29/2022 4:18 PM EDT PHARYNGITIS PATIENT INSTRUCTIONS DESCRIPTION: Inflammation and infection of the pharynx that can be caused by a variety of germs. SIGNS AND SYMPTOMS: -Sore throat. -Swallowing difficulty. -Tickle or lump in the throat. -Fever. -Swollen glands in the neck (sometimes). -Throat may be red or covered with a grayish membrane (sometimes). -Generalized aching. CAUSES: Infection from bacteria, viruses or fungi. PREVENTIVE MEASURES: -Avoid close contact with anyone with a sore throat. -Keep immunizations, including diphtheria, up to date. TREATMENT: -Laboratory throat culture and blood count may be done to determine type of infection. -Home care is usually sufficient. -Use gargles to relieve throat pain. Prepare double strength tea, hot or cold, or a salt-water solution (1 teaspoon salt in 8 oz. warm water). Use to gargle as often as you wish. -Use a cool-mist ultrasonic humidifier to increase air moisture. This will relieve the dry, tight feeling in the throat. Clean humidifier daily. -If the glands are large and tender, apply moist, warm soaks at least 4 times a day for 30 to 60 minutes. The compresses will be more effective if they are kept warm. Be careful not to burn the skin. -Replace your toothbrush. It may be harboring germs. -Until infection is gone, don't share washcloths; or food. MEDICATIONS: -For minor discomfort you may use non-prescription drugs such as acetaminophen. Don't give aspirin to a child for any viral illness. -Non-prescription throat lozenges may help ease discomfort. -Antibiotics or antifungal agents to fight bacterial or fungal infections. Be sure to finish entire course of prescribed antibiotics to avoid complications. ACTIVITY: Limited activity is necessary until symptoms disappear. DIET: Extra fluids are necessary. Drink at least 8 glasses of fluid daily, more for high fevers. If swallowing solid food is painful, try a liquid or soft diet for a few days. NOTIFY OFFICE: -The following occur during treatment: Breathing or swallowing difficulty. Fever; severe headache. Thick mucus drainage from the nose. Productive cough that is discolored. Skin rash. Dark urine. Chest pain. documented in this encounter [facility] 12-29-2022 History of Presen t illness Narrative This note was created using Muzy. Subjective Laquita Patterson is a 22 year old female. HPI 22-year-old female presents for sore throat and body aches. Patient states she has had a sore throat and body aches for a little over a week. No cough, runny nose, chest pain or shortness of breath. No vomiting or diarrhea. States she has been little nauseous. No concern for . States her brother recently had strep. No other sick contacts. PAST MEDICAL HISTORY Diagnosis Date Anemia Attempted suicide ([facility]) 11/14/2016 [place] x 10 days Chlamydia Migraine with aura 2014 ocp's contraindicated NEGATIVE MEDICAL HISTORY 2012 normal color vision PAST SURGICAL HISTORY Procedure Laterality Date PAST SURGICAL HISTORY OF had france stuck in throat when was 1 year old ALLERGIES Patient has no known allergies. MEDICATIONS prental multivitamin 27 mg iron- 800 mcg tablet Take 1 tablet by mouth once daily. FAMILY HISTORY Problem Relation Age of Onset other (degenerative disc disease) Mother Bipolar disorder Mother Depression Father Anxiety disorder Father Alcohol abuse Father Anxiety disorder Brother ADD/ADHD Brother Breast Cancer Maternal Grandmother other (other) Maternal Grandfather Anxiety disorder Maternal Grandfather Depression Maternal Grandfather other (degenerative disc disease) Maternal Grandfather Depression Paternal Grandmother Depression Paternal Grandfather Anxiety disorder Half-sister Depression Half-sister No Known Problems Half-brother Depression Half-brother Anxiety disorder Half-brother Social History Tobacco Use Smoking status: Former Years: 2.00 Types: Cigarettes Smokeless tobacco: Never Vaping Use Vaping Use: current everyday user Quit date: 06/02/2022 Substances: Nicotine Substance Use Topics Alcohol use: No Drug use: Yes Types: Marijuana Review of Systems Constitutional: Negative for chills and fever. HENT: Positive for sore throat. Negative for congestion and ear pain. Respiratory: Negative for cough and shortness of breath. Cardiovascular: Negative for chest pain. Gastrointestinal: Positive for nausea. Negative for diarrhea and vomiting. Musculoskeletal: Positive for myalgias. Objective BP 102/64 Pulse 69 Temp 36.9 C (98.4 F) (Tympanic) Resp 18 Wt 42.2 kg (93 lb) LMP 08/17/2022 (Exact Date) SpO2 97% BMI 17.29 kg/m Physical Exam Vitals and nursing note reviewed. Constitutional: General: She is not in acute distress. Appearance: Normal appearance. She is not toxic-appearing. HENT: Right Ear: Tympanic membrane and ear canal normal. Left Ear: Tympanic membrane and ear canal normal. Nose: Nose normal. Mouth/Throat: Mouth: Mucous membranes are moist. Pharynx: Uvula midline. Posterior oropharyngeal erythema present. No oropharyngeal exudate. Tonsils: No tonsillar exudate. Eyes: Conjunctiva/sclera: Conjunctivae normal. Cardiovascular: Rate and Rhythm: Normal rate and regular rhythm. Pulmonary: Effort: Pulmonary effort is normal. Breath sounds: Normal breath sounds. Neurological: Mental Status: She is alert. Assessment and Plan ASSESSMENT/PLAN: 1. Sore throat - ICD9: 462, ICD10: J02.9 - suspect viral - Alere Strep Test negative, no culture pending - Discussed supportive care treatment with fluids, rest and analgesia. - STREP A MOLECULAR (POC) Diagnosis and treatment plan were discussed and questions were answered to the patient's satisfaction. Pt acknowledged understanding of concepts and follow up plan. Specific signs and symptoms that would indicate the need for higher level of care were discussed in detail warranting prompt ER evaluation. SARA Quiroz documented in this encounter [facility] 10-07-2022 Miscellaneous Notes Second call attempt, contact listed as Self does not ring, patient mother contact rings but does not go to . Patient has viewed results via [employer]. Vanda Galeas MA TC to pt. LM to call office, ask for triage nurse to get results. Onelia Merchant LPN Positive for influenza A negative for COVID and influenza B. documented in this encounter [facility] 09-01-2022 History of Presen t illness Narrative Radiology Service Progress Note PATIENT NAME: Laquita Patterson DATE OF SERVICE: September 01, 2022 TIME: 12:06 PM PATIENT IDENTITY VERIFICATION COMPLETED USING TWO (2) IDENTIFIERS: Name and Date of confirmed by patient verbally. FALL SCREENING: Has the patient had 2 falls in the last year or 1 fall with injury or currently using an Ambulatory Assistive Device (Walker, Cane, Wheelchair, Crutches, etc.)? No PATIENT GENDER DATA: Female. status: : No status: NO. PATIENT RELEVANT IMPLANT DATA REVIEWED: Not Applicable RADIOLOGY DEPARTMENT: Ultrasound PERIPHERAL IV DATA: Not applicable SIGNED BY: Sona Briones RDMS September 01, 2022 12:06 PM documented in this encounter [facility] 08-30-2022 History of Presen t illness Narrative Laquita Patterson is a 22 year old female who presents for problem visit spotting for 1 week(s). HPI: LMP 08/17/22 heavier bleeding lasted until the 7th and since she has had light pink discharge with wiping. Then yesterday after intercourse the bleeding was bright red and today is back to pink. Denies any pain. Her periods have been regular since SAB in Jun. OB History T0 L0 SAB0 IAB0 Ectopic0 Multiple0 Live Births0 Physician Primary Care Sports Medicine History LMP: 08/17/2022 (Exact Date), Having periods Age at Menarche: Age at First : Age at Menopause: Physician Primary Care Sports Medicine History Comments: Sexual Activity: Yes; Male Contraception: Condom PAST MEDICAL HISTORY Diagnosis Date Anemia Attempted suicide (HCC) 11/14/2016 [place] x 10 days Chlamydia Migraine with aura 2014 ocp's contraindicated NEGATIVE MEDICAL HISTORY 2012 normal color vision PAST SURGICAL HISTORY Procedure Laterality Date PAST SURGICAL HISTORY OF had france stuck in throat when was 1 year old FAMILY HISTORY Problem Relation Age of Onset other (degenerative disc disease) Mother Bipolar disorder Mother Depression Father Anxiety disorder Father Alcohol abuse Father Anxiety disorder Brother ADD/ADHD Brother Breast Cancer Maternal Grandmother other (other) Maternal Grandfather Anxiety disorder Maternal Grandfather Depression Maternal Grandfather other (degenerative disc disease) Maternal Grandfather Depression Paternal Grandmother Depression Paternal Grandfather Anxiety disorder Half-sister Depression Half-sister No Known Problems Half-brother Depression Half-brother Anxiety disorder Half-brother Social History Tobacco Use Smoking status: Former Years: 2.00 Types: Cigarettes Smokeless tobacco: Never Vaping Use Vaping Use: current everyday user Quit date: 06/02/2022 Substances: Nicotine Substance Use Topics Alcohol use: No Drug use: Yes Types: Marijuana Current Outpatient Medications Medication Sig prental multivitamin 27 mg iron- 800 mcg tablet Take 1 tablet by mouth once daily. No current facility-administered medications for this visit. Allergies As of Date: 08/30/2022 (No Known Allergies) Fully Assessed 08/30/2022 REVIEW OF SYSTEMS Abdomen: No bloating, early satiety, indigestion, or increased flatulence. No abdominal pain, nausea, vomiting, diarrhea, or constipation. Bladder: No dysuria, gross hematuria, urinary frequency, urinary urgency, or incontinence. Expanded ROS: N/A Allergies and current medication updated:Yes EXAM: BP 92/60 Wt 92 lb 6.4 oz (41.9kg) LMP 08/17/2022 GENERAL: pleasant, female in no apparent distress HEENT: Normocephalic, atraumatic, and no lesions CHEST: Normal inspiratory effort PELVIC: external genitalia normal, normal Bartholin's glands, urethra, Tajique's glands, no vulvar lesions, no cervical lesions, good vaginal support, physiologic discharge present, normal appearing perineal body and perianal region BIMANUAL: uterus normal size, shape and consistency, no adnexal masses, non-tender, and no cervical motion tenderness NEURO: alert and oriented x3,exam grossly non-focal ASSESSMENT/PLAN: 1. Postcoital and contact bleeding - ICD9: 626.7, ICD10: N93.0 - TOMER / TRICHOMONAS AMPLIFICATION - BACTERIAL VAGINOSIS AMPLIFICATION - US FEMALE PELVIS TRANSVAG Michell Pop APRN.CNP Medical Decision Making: Problems: Moderate: New problem with uncertain prognosis Data: Unique test(s) ordered: 2 Risk: Low: Low risk from testing/treatment Medical Decision Making Level: 3 - Low documented in this encounter [facility] 06-23-2022 History of Presen t illness Narrative Obstetric History T0 L0 SAB0 IAB0 Ectopic0 Multiple0 Live Births0 Name of Baby 1: Not recorded Date: Not recorded GA: Not recorded Delivery: Not recorded Apgar1: Not recorded Apgar5: Not recorded Living: Not recorded Laquita Patterson is a 22 year old female who presents for problem visit. HPI: Patient reports that her bleeding has slowed. She is coping OK & has support. OB History T0 L0 SAB0 IAB0 Ectopic0 Multiple0 Live Births0 Physician Primary Care Sports Medicine History LMP: 04/11/2022, Age at Menarche: Age at First : Age at Menopause: Physician Primary Care Sports Medicine History Comments: Sexual Activity: Yes; Male Contraception: Condom PAST MEDICAL HISTORY Diagnosis Date Anemia Attempted suicide (HCC) 11/14/2016 [place] x 10 days Chlamydia Migraine with aura 2015 ocp's contraindicated NEGATIVE MEDICAL HISTORY 2013 normal color vision PAST SURGICAL HISTORY Procedure Laterality Date PAST SURGICAL HISTORY OF had france stuck in throat when was 1 year old FAMILY HISTORY Problem Relation Age of Onset other (degenerative disc disease) Mother Bipolar disorder Mother Depression Father Anxiety disorder Father Alcohol abuse Father Anxiety disorder Brother ADD/ADHD Brother Breast Cancer Maternal Grandmother other (other) Maternal Grandfather Anxiety disorder Maternal Grandfather Depression Maternal Grandfather other (degenerative disc disease) Maternal Grandfather Depression Paternal Grandmother Depression Paternal Grandfather Anxiety disorder Half-sister Depression Half-sister No Known Problems Half-brother Depression Half-brother Anxiety disorder Half-brother Social History Tobacco Use Smoking status: Former Years: 2.00 Types: Cigarettes Smokeless tobacco: Never Vaping Use Vaping Use: current everyday user Quit date: 06/02/2022 Substances: Nicotine Substance Use Topics Alcohol use: No Drug use: Yes Types: Marijuana Current Outpatient Medications Medication Sig prental multivitamin 27 mg iron- 800 mcg tablet Take 1 tablet by mouth once daily. No current facility-administered medications for this visit. Allergies As of Date: 06/23/2022 (No Known Allergies) Fully Assessed 06/23/2022 Allergies and current medication updated:Yes EXAM: BP 94/56 Wt 94 lb (42.6kg) LMP 04/11/2022 GENERAL: pleasant, female in no apparent distress PELVIC: external genitalia normal ASSESSMENT AND PLAN: 22yo female with complete HCG quants decreasing. TVUS shows endometrial stripe of .65cm & no retained POC's. Patient will take urine hcg with next menses & notify office if positive . Discussed miscarriage & future pregnancies. All questions answered. Medical Decision Making: Problems: Low: Acute, uncomplicated illness or injury Risk: Low: Low risk from testing/treatment Medical Decision Making Level: 3 - Low Cale Tanner MD documented in this encounter [facility] 06-21-2022 History of Presen t illness Narrative Obstetric History T0 L0 SAB0 IAB0 Ectopic0 Multiple0 Live Births0 Name of Baby 1: Not recorded Date: Not recorded GA: Not recorded Delivery: Not recorded Apgar1: Not recorded Apgar5: Not recorded Living: Not recorded Laquita Patterson is a 22 year old female who presents for problem visit. HPI: Patient seen in ED over the weekend for bleeding in . Patient states she continued having bleeding for another day but it has now lightened. Denies pelvic pain. OB History T0 L0 SAB0 IAB0 Ectopic0 Multiple0 Live Births0 Physician Primary Care Sports Medicine History LMP: 04/11/2022, Age at Menarche: Age at First : Age at Menopause: Physician Primary Care Sports Medicine History Comments: Sexual Activity: Yes; Male Contraception: Condom PAST MEDICAL HISTORY Diagnosis Date Anemia Attempted suicide (HCC) 11/14/2016 [place] x 10 days Chlamydia Migraine with aura 2014 ocp's contraindicated NEGATIVE MEDICAL HISTORY 2012 normal color vision PAST SURGICAL HISTORY Procedure Laterality Date PAST SURGICAL HISTORY OF had france stuck in throat when was 1 year old FAMILY HISTORY Problem Relation Age of Onset other (degenerative disc disease) Mother Bipolar disorder Mother Depression Father Anxiety disorder Father Alcohol abuse Father Anxiety disorder Brother ADD/ADHD Brother Breast Cancer Maternal Grandmother other (other) Maternal Grandfather Anxiety disorder Maternal Grandfather Depression Maternal Grandfather other (degenerative disc disease) Maternal Grandfather Depression Paternal Grandmother Depression Paternal Grandfather Anxiety disorder Half-sister Depression Half-sister No Known Problems Half-brother Depression Half-brother Anxiety disorder Half-brother Social History Tobacco Use Smoking status: Former Years: 2.00 Types: Cigarettes Smokeless tobacco: Never Vaping Use Vaping Use: current everyday user Quit date: 06/02/2022 Substances: Nicotine Substance Use Topics Alcohol use: No Drug use: Yes Types: Marijuana Current Outpatient Medications Medication Sig prental multivitamin 27 mg iron- 800 mcg tablet Take 1 tablet by mouth once daily. No current facility-administered medications for this visit. Allergies As of Date: 06/21/2022 (No Known Allergies) Fully Assessed 06/21/2022 Allergies and current medication updated:Yes EXAM: BP 112/58 Wt 92 lb 6.4 oz (41.9kg) LMP 04/11/2022 GENERAL: pleasant, female in no apparent distress ASSESSMENT AND PLAN: 22yo female with threatened ED records reviewed showing HCG quant of 1327 and O positive blood type. US & MD note also reviewed and overall findings concerning for miscarriage. Discussed with patient high suspicion for miscarriage. Recommend repeat hcg quant and for patient to follow up . All questions answered & patient agrees with plan. Reviewed bleeding & pain precautions. Cale Tanner MD Medical Decision Making: Problems: Moderate: New problem with uncertain prognosis Data: Unique source(s) for external note(s) reviewed: 1 Unique test result(s) reviewed: 3+ Unique test(s) ordered: 2 Risk: Low: Low risk from testing/treatment Medical Decision Making Level: 4 - Moderate Cale Tanner MD documented in this encounter [facility] 06-16-2022 Miscellaneous Notes DISTANCE HEALTH VISIT This Team Access Model visit is a phone encounter. It required patient-provider interaction for the medical decision making as documented below. Father of the baby involved. Pt has a history of depression/anxiety diagnosed at age 12. She has been off medication since 2017. She believes she is doing well off medication. She has had counseling in the past with [facility] and plans on starting back up again this .. Discussed increased risks of depression during and and importance of reporting the development or worsening of symptoms should they occur. Patient had attempted suicide in 2017. She denies any suicidal thoughts since then. Patient states that she abused Xanax that was not prescribed to her in 2017. She denies any drug use since then. Pt recently quit smoking and vaping. Discussed risks of smoking during and advised pt to continue not smoking. Patient desires aneuploidy screening. I have given her information to [employer] to check on insurance coverage for maternity 21+ test. Patient is considering genetic carrier screening testing. I have given her contact information for the [facility] rep to check on insurance Coverage. TKRN documented in this encounter [facility] Diagnosis Threatened - Primary Threatened , unspecified as to episode of care [facility] Diagnosis Complete - Primary Unspecified , without mention of complication, complete [facility] Diagnosis Postcoital and contact bleeding- Primary [facility]co[facility] Diagnosis BV (bacterial vaginosis)- Primary Vaginitis and vulvovaginitis, unspecified [facility] Diagnosis Sore throat- Primary Acute pharyngitis [facility] Diagnosis Rash of face- Primary Rash and other nonspecific skin eruption [facility] Diagnosis Postcoital and contact bleeding Postcoital bleeding [facility] Diagnosis with uncertain dates in first trimester- Primary [facility] Diagnosis Spotting complicating , first trimester- Primary documented in this encounter [facility] for referral (narrative)* Diagnostic Procedure Only (Routine) - Authorized Specialty Diagnoses / Procedures Referred By Contac t Referred To Contact US IMAGING Diagnoses Postcoital and contact bleeding Procedures US FEMALE PELVIS TRANSVAG US TRANSVAGINAL Michell Pop APRN.CNP [address] [place] [address] Us Imaging Referral ID Status Reason Start Date Expiration Date Visits Requested Visits Authorized [id number] Authorized Auto-Generat ed Referral 09/29/2023 1 1 [facility] for referral (narrative)* Diagnostic Procedure Only (Routine) - Closed Specialty Diagnoses / Procedures Referred By Elbert neumann Referred To Contact US IMAGING Diagnoses Postcoital and contact bleeding Procedures US FEMALE PELVIS TRANSVAG US TRANSVAGINAL Michell Pop APRN.CNP [address] [place] [address] [place] [address] Referral ID Status Reason Start Date Expiration Date V isits Requested Visits Authorized [id number] Closed Auto-Generate d Referral 08/30/2022 09/29/2023 1 1 [facility] Concerns Infection Onset Date Last Indicated Resolved Time COVID-19 Rule-Out 10/05/2022 10/05/2022 10/06/2022 6:12 AM EST Problem Noted Date Diagnosed Date [facility] Education - COMMON 09/18/2023 Problem Noted Date Diagnosed Date [facility] Education - COMMON 09/18/2023 Problem Noted Date Diagnosed Date [facility] CC Education - COMMON 09/18/2023 Summary Purpose Family History No Family History Records Found Advance Directives No Advanced Directives Records Found Additional Source Comments Source Comments (unrecognize d section and content) In the event this informatio n is protected by the Federal Confidentiality of Alcohol and Drug Abuse Patient Records regulations: The Federal rules restrict any use of the information to criminally investigate or prosecute any alcohol or drug abuse patient.[facility] the event this information is protected by the Federal Confidentiality of Alcohol and Drug Abuse Patient Records regulations: The Federal rules restrict any use of the information to criminally investigate or prosecute any alcohol or drug abuse patient.[facility] the event this information is protected by the Federal Confidentiality of Alcohol and Drug Abuse Patient Records regulations: The Federal rules restrict any use of the information to criminally investigate or prosecute any alcohol or drug abuse patient.[facility] the event this information is protected by the Federal Confidentiality of Alcohol and Drug Abuse Patient Records regulations: The Federal rules restrict any use of the information to criminally investigate or prosecute any alcohol or drug abuse patient.[facility] the event this information is protected by the Federal Confidentiality of Alcohol and Drug Abuse Patient Records regulations: The Federal rules restrict any use of the information to criminally investigate or prosecute any alcohol or drug abuse patient.[facility] the event this information is protected by the Federal Confidentiality of Alcohol and Drug Abuse Patient Records regulations: The Federal rules restrict any use of the information to criminally investigate or prosecute any alcohol or drug abuse patient.[facility] the event this information is protected by the Federal Confidentiality of Alcohol and Drug Abuse Patient Records regulations: The Federal rules restrict any use of the information to criminally investigate or prosecute any alcohol or drug abuse patient.[facility]In the event this information is protected by the Federal Confidentiality of Alcohol and Drug Abuse Patient Records regulations: The Federal rules restrict any use of the information to criminally investigate or prosecute any alcohol or drug abuse patient.[facility]In the event this information is protected by the Federal Confidentiality of Alcohol and Drug Abuse Patient Records regulations: The Federal rules restrict any use of the information to criminally investigate or prosecute any alcohol or drug abuse patient.[facility]In the event this information is protected by the Federal Confidentiality of Alcohol and Drug Abuse Patient Records regulations: The Federal rules restrict any use of the information to criminally investigate or prosecute any alcohol or drug abuse patient.[facility] HospitalIn the event this information is protected by the Federal Confidentiality of Alcohol and Drug Abuse Patient Records regulations: The Federal rules restrict any use of the information to criminally investigate or prosecute any alcohol or drug abuse patient.[facility] HospitalIn the event this information is protected by the Federal Confidentiality of Alcohol and Drug Abuse Patient Records regulations: The Federal rules restrict any use of the information to criminally investigate or prosecute any alcohol or drug abuse patient.[facility] Reason for Visit (unrecogniz ed section and content) Reason Comments Follow Up Reason Comments Vaginal Problem Bleeding after inter course yesterday. Has been having spotting between periods since miscarriage Reason Comments Results Reason Comments Sore Throat ST and bodyaches x 1 .5 weeks Reason Comments Rash on face x 5 days, he adache used lotrimin made worse Reason Comments Radiology US Specialty Diagnoses / Procedures Referred By Elbert neumann Referred To Contact US IMAGING Diagnoses Postcoital and contact bleeding Procedures US FEMALE PELVIS TRANSVAG US TRANSVAGINAL Michell Pop APRN.FILM AND VIDEO EDITOR [address] [place] [address] [place] [address] Referral ID Status Reason Start Date Expiration Date V isits Requested Visits Authorized [id number] Closed Auto-Generate d Referral 08/30/2022 09/29/2023 1 1 Reason Comments Early OB spotting Care Teams (unrecognized sec tion and content) 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 Saw 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 Relationship Specialty Start Date End Date Eliezer Leo MD [address] [place] [address] [id number] PCP - General Pediatrics 02/04/14 Friction Saw Operator Relationship Specialty Start Date End Date Eliezer Leo MD [address] [place] [address] [id number] PCP - General Pediatrics 02/04/14 Friction Saw Operator Relationship Specialty Start Date End Date Eliezer Leo MD [address] [place] [address] [id number] PCP - General Pediatrics 02/04/14 Friction Saw Operator Relationship Specialty Start Date End Date Eliezer Leo MD [address] [place] [address] [id number] PCP - General Pediatrics 02/04/14 Friction Saw Operator Relationship Specialty Start Date End Date Eliezer Leo MD [address] [place] [address] [id number] PCP - General Pediatrics 02/04/14 Friction Saw Operator Relationship Specialty Start Date End Date Eliezer Leo MD [address] [facility], [place] [id number] PCP - General Pediatrics 02/04/14 Friction Saw Operator Relationship Specialty Start Date End Date Colby Hussein MD [address] [facility] [place] [id number] PCP - General Family Medicine 06/14/23 Friction Saw Operator Relationship Specialty Start Date End Date Eliezer Leo MD [address] [facility], [place] [phone] PCP - General Pediatrics 02/04/14 06/13/23 Friction Saw Operator Relationship Specialty Start Date End Date Colby Hussein MD [address] [facility], [place] [id number] PCP - General Family Medicine 06/14/23 Friction Saw Operator Relationship Specialty Start Date End Date Colby Hussein MD [address] [place], [place] [address]Nabil MIR [place], [place] [id number] PCP - General Family Medicine 06/14/23 INFORMATION SOURCE (unrecogn ized section and content) FOR RECORDS PERTAINING TO PATIENTS WHO ARE OR HAVE BEEN ENROLLED IN A CHEMICAL DEPENDENCY/SUBSTANCEABUSE PROGRAM, SOME INFORMATION MAY BE OMITTED. This clinical summary was aggregated from multiple sources. Caution should be exercised in using it in the provision of clinical care. This summary normalizes information from multiple sources, and as a consequence, information in this document may materially change the coding, format and clinical context of patient data. In addition, data may be omitted in some cases. CLINICAL DECISIONS SHOULD BE BASED ON THE PRIMARY CLINICAL RECORDS. [facility] [employer] [facility]. provides no warranty or guarantee of the accuracy or completeness of information in this document.
== END 2023-11-04 17:54 | disposition home or self-care (01) ==
PROVIDERS: Emergency Provider Emergency Medicine; PCP Family Medicine; Visit Provider Emergency Medicine
DX: O99.891 Other specified diseases and conditions complicating pregnancy (principal); N89.8 Other specified noninflammatory disorders of vagina; R10.2 Pelvic and perineal pain; Z3A.11 11 weeks gestation of pregnancy; Z87.891 Personal history of nicotine dependence
CPT/HCPCS: 99282

== ENCOUNTER 2023-11-25 17:28 | Emergency (ER) | payer BC, SELFPAY ==
[2023-11-25 17:29] VITALS: BP 112/76; PULSE 108; RESP 16; TEMP 36.6; O2SAT 100; BMI 17.6
--- OUTSIDE RECORDS SUMMARY | 2023-11-25 18:33 | XMS RPT_ITS | CCD ---
Author Name Unknown Address [address] [place] [address] Organization [facility] Care Team Providers Care Inspector [employer] Name Role Phone Eliezer Leo MD Primary Care Provider Colby Hussein MD Primary Care Provider Eliezer Leo MD Primary Care Provider Colby Hussein MD Primary Care Provider SIENNA MANTILLA Attending Unavailable COLBY HUSSEIN Primary Care Unavailabl e LEXY FARRELLICA Attending Unavailable COLBY HUSSEIN Primary Care Unavailabl e ELIEZER LEO Primary Care Unavailable DINAH, DAYNA Referring Unavailable JJ GORMAN Attending Unavailable COLBY HUSSEIN Primary Care Unavailabl e SHAISTA ARCEO Attending Unavailable LEXY FARRELLICA Referring Unavailable COLBY HUSSEIN Primary Care Unavailabl e LEXY FARRELLICA Attending Unavailable COLBY HUSSEIN Primary Care Unavailabl SIENNA Sharma Attending Unavailable COLBY HUSSEIN Primary Care Unavailabl e FARRELL, DAYNA Referring Unavailable COLBY HUSSEIN Primary Care Unavailabl e FARRELL, DAYNA Referring Unavailable DINAH DAYNA Attending Unavailable COLBY HUSSEIN Primary Care Unavailabl e FARRELL, DAYNA Referring Unavailable DINAH DAYNA Attending Unavailable COLBY HUSSEIN Primary Care Unavailabl e DINAH DAYNA Attending Unavailable COLBY HUSSEIN Primary Care Unavailabl e ELIEZER LEO Primary Care Unavailable DINAH, DAYNA Referring Unavailable COLBY HUSSEIN Primary Care Unavailabl JJ Chavez Attending Unavailable LEXY FARRELLICA Referring Unavailable COLBY HUSSEIN Primary Care UnavailCOLBY Leyva Primary Care Unavailabl DARYN Millan Referring Unavailable DARYN CORONA Referring Unavailable COLBY HUSSEIN Primary Care UnavailDAYNA Chirinos Referring Unavailable COLBY HUSSEIN Primary Care Unavailabl e Medications Current Medications Medication Drug Class(es) Dates Sig (Normalized) Sig (Original) metoclopramide 10 mg oral tablet (2 sources) Dopamine-2 Receptor Antagonist Start: 10-31-2023 End: 11-30-2023 take 1 tablet by mouth every eight hours as needed metoclopramide HCl (REGLAN) 10 mg tablet Take 1 tablet by mouth three times a day as needed. 30 tablet 2 10/31/2023 11/30/2023 Active Completed/Discontinued Medications Medication Drug Class(es) Dates [...] Problem Classification Problem Date Documented Date Episodic/Chronic Abdominal pain (1 source) Left lower quadrant pain; Translations: [Left lower quadrant pain] 11-22-2023 Episodic Anxiety disorders (14 sources) Anxiety disorder; Translations: [Anxiety disorder, unspecified] Onset: 02-07-2014 02-07-2014 Chronic Disorders usually diagnosed in infancy, childhood, or adolescence (14 sources) Attention deficit hyperactivity disorder, predominantly inattentive [...] Onset: 12-27-2012 10-11-2021 Chronic Other complications of (5 sources) High risk ; Translations: [Supervision of other high risk pregnancies, first trimester] Onset: 09-18-2023 09-18-2023 Episodic Other complications of (1 source) Spotting per vagina in ; Translations: [Spotting complicating , first trimester] 09-25-2023 Episodic Other complications of (3 sources) Hyperemesis gravidarum; Translations: [Vomiting of , unspecified] Onset: 11-14-2023 11-14-2023 Episodic Other complications of (1 source) Fatigue during ; Translations: [ related exhaustion and fatigue, first trimester] 11-14-2023 Episodic Other complications of (1 source) Spotting complicating , first trimester; Translations: [Spotting complicating , first trimester] Onset: 10-02-2023 Episodic Other female genital disorders (2 sources) Vaginal bleeding; Translations: [Postcoital and contact bleeding] Chronic Other female genital disorders (1 source) Other specified noninflammatory disorders of vagina; Translations: [Vaginal discharge] Onset: 11-07-2023 Episodic Other and delivery including normal (6 sources) Normal ; Translations: [Encounter for supervision of normal first , unspecified trimester] Onset: 10-11-2023 Episodic Other skin disorders (1 source) Eruption; Translations: [Rash and other nonspecific skin eruption] 06-14-2023 Episodic Other upper respiratory infections (1 source) Sore throat symptom; Translations: [Acute pharyngitis, unspecified] Episodic Residual codes; unclassified (5 sources) H/O: miscarriage; Translations: [Personal history of other complications of , childbirth and the puerperium] Onset: 09-18-2023 09-18-2023 Episodic Residual codes; unclassified (1 source) Gestation period, 13 weeks; Translations: [13 weeks gestation of ] 11-22-2023 Episodic Residual codes; unclassified (1 source) 10 weeks gestation of ; Translations: [10 weeks gestation of ] Onset: 11-14-2023 Episodic Residual codes; unclassified (1 source) 11 weeks gestation of ; Translations: [11 weeks gestation of ] Onset: 11-07-2023 Episodic Residual codes; unclassified (1 source) 8 weeks gestation of ; Translations: [8 weeks gestation of ] Onset: 09-20-2023 Episodic Spondylosis; intervertebral disc disorders; other back problems (1 source) Acute low back pain; Translations: [Acute bilateral low back pain without sciatica] 11-22-2023 Episodic Spontaneous (1 source) with abortive outcome; Translations: [Complete or unspecified spontaneous without complication] Episodic Substance-related disorders (16 sources) History of drug abuse; Translations: [Other psychoactive substance abuse, in remission] Onset: 06-16-2022 Chronic Past or Other Problems Problem Classification Problem Date Documented Da te Episodic/Chronic Malaise and fatigue (14 sources) Fatigue; Translations: [Other fatigue] Onset: 09-20-2013 [...] Vital Sign Value Performing Clinician Bertram barfield 11-22-2023 14:00-0500 Body weight 42.27 kg Sienna Mantilla APRN.NATALI Work Phone: [facility] 11-22-2023 14:00-0500 Diastolic blood pressure 62 mm[Hg] Sienna Mantilla APRN.CNM Work Phone: [facility] 11-22-2023 14:00-0500 Systolic blood pressure 104 mm[Hg] Sienna Manitlla APRN.CNM Work Phone: [facility] 11-14-2023 14:33-0500 Body weight 41.64 kg Dayna Farrell APRN.CNM Work Phone: [facility] 11-14-2023 14:33-0500 Diastolic blood pressure 66 mm[Hg] Dayna Farrell APRN.CNM Work Phone: [facility] 11-14-2023 14:33-0500 Systolic blood pressure 100 mm[Hg] Dayna Farrell APRN.CNM Work Phone: [facility] 06-14-2023 17:54-0400 Body temperature 98.4 [degF] Palmer Barbour MD Work Phone: [facility] 06-14-2023 17:54-0400 Body weight 42.91 kg Palmer Barbour MD Work Phone: [facility] 06-14-2023 17:54-0400 Diastolic blood pressure 64 mm[Hg] Palmer Barbour MD Work Phone: [facility] 06-14-2023 17:54-0400 Heart rate 80 /min Palmer Barbour MD Work Phone: [facility] 06-14-2023 17:54-0400 Respiratory rate 16 /min Palmer Barbour MD Work Phone: [facility] 06-14-2023 17:54-0400 Systolic blood pressure 100 mm[Hg] Palmer Barbour MD Work Phone: [facility] 12-29-2022 16:04-0400 Body temperature 98.4 [degF] Krislyn Aberegg PA Work Phone: [facility] 12-29-2022 16:04-0400 Body weight 42.19 kg Krislyn Aberegg PA Work Phone: [facility] 12-29-2022 16:04-0400 Diastolic blood pressure 64 mm[Hg] Krislyn Aberegg PA Work Phone: [facility] 12-29-2022 16:04-0400 Heart rate 69 /min Krislyn Aberegg PA Work Phone: [facility] 12-29-2022 16:04-0400 Respiratory rate 18 /min Krislyn Aberegg PA Work Phone: [facility] 12-29-2022 16:04-0400 SaO2% (BldA) [Mass fraction] 97 % Krislyn Aberegg PA Work Phone: [facility] 12-29-2022 16:04-0400 Systolic blood pressure 102 mm[Hg] Carolin RUIZ Work Phone: [facility] 08-30-2022 14:12-0500 Body weight 41.91 kg Michell Donn LEAD TECHNOLOGIST IN CYTOGENETICS.REMELTER Work Phone: [facility] 08-30-2022 14:12-0500 Diastolic blood pressure 60 mm[Hg] Michell Saint Onge LEAD TECHNOLOGIST IN CYTOGENETICS.REMELTER Work Phone: [facility] 08-30-2022 14:12-0500 Systolic blood pressure 92 mm[Hg] Michell Saint Onge LEAD TECHNOLOGIST IN CYTOGENETICS.REMELTER Work Phone: [facility] 06-23-2022 11:25-0400 Body weight 42.64 kg Shaista Arceo MD Work Phone: [facility] 06-23-2022 11:25-0400 Diastolic blood pressure 56 mm[Hg] Shaista Arceo MD Work Phone: [facility] 06-23-2022 11:25-0400 Systolic blood pressure 94 mm[Hg] Shaista Arceo MD Work Phone: [facility] 06-21-2022 10:33-0400 Body weight 41.91 kg Shaista Arceo MD Work Phone: [facility] 06-21-2022 10:33-0400 Diastolic blood pressure 58 mm[Hg] Shaista Arceo MD Work Phone: [facility] 06-21-2022 10:33-0400 Systolic blood pressure 112 mm[Hg] Shaista Arceo MD Work Phone: [facility] Encounters Encounter Date Encounter Type Care Provider Facility Start: 11-22-2023 End: 11-22-2023 ambulatory SIENNA MANTILLA Facility:[facility] Start: 11-22-2023 End: 11-22-2023 Patient encounter procedure Sienna Mantilla LEAD TECHNOLOGIST IN CYTOGENETICS.CNM Work Phone: OB/Gynecology Procedures Date Procedure Procedure Detail Performing Clinician Start: 11-22-2023 Urnls dip stick/tabl et rgnt auto w/o microscopy Sienna Mantilla LEAD TECHNOLOGIST IN CYTOGENETICS.CNM Work Phone: Start: 09-18-2023 Antibody screen SARAH MANTILLA Plan of Treatment Date Care Activity Detail Author Start: 11-16-2024 PAP TESTING PAP TESTING [facility] Start: 11-16-2024 Screening for malign ant neoplasm of cervix Pap Testing [facility] Start: 09-18-2024 Chlamydia Screening (18-24) Chlamydia Screening (18-24) [facility] Start: 09-18-2024 GC (Gonorrhea) Screening (18-24) GC (Gonorrhea) Screening (18-24) [facility] Start: 09-18-2024 Screening for Chlamy irwin trachomatis Chlamydia Screening (18) [facility] Start: 11-14-2023 End: 11-14-2024 OBSTETRIC ULTRASOUND WHI OBSTETRIC ULTRASOUND I Anc Imaging Routine Encounter for supervision of normal first in second trimester Expected: 11/14/2023, Expires: 11/14/2024 [facility] Work Phone: Immunizations Immunization Date Immunization Notes Care Provider Rashmi valente 08-23-2019 Human Papillomavirus 9-valent vaccine Nurse [facility] Work Phone: [facility] Work Phone: 02-26-2019 Human Papillomavirus 9-valent vaccine Nurse tr Work Phone: [facility] Work Phone: 01-22-2018 Human Papillomavirus 9-valent vaccine Nurse Wstr Work Phone: [facility] 07-11-2017 influenza, injectabl e, quadrivalent, contains preservative Nurse tr Work Phone: [facility] 07-11-2017 meningococcal polysaccharide (groups A, C, Y and W-135) diphtheria toxoid conjugate vaccine (MCV4P) Nurse tr Work Phone: [facility] 07-11-2017 influenza virus vacc ine, unspecified formulation 1 Work Phone: [facility] 10-25-2012 influenza virus vacc ine, live, attenuated, for intranasal use Nurse [facility] Work Phone: [facility] 05-20-2005 diphtheria, tetanus toxoids and acellular pertussis vaccine Nurse Wstr Work Phone: [facility] Work Phone: 05-18-2005 measles, mumps and rubella virus vaccine Nurse Wstr Work Phone: [facility] Work Phone: 05-28-2001 measles, mumps and rubella virus vaccine Nurse Wstr Work Phone: [facility] Work Phone: 05-28-2001 varicella virus vaccine Nurs e Wstr Work Phone: [facility] Work Phone: 05-07-2001 hepatitis B vaccine, pediatric or pediatric/adolescent dosage Nurse Wstr Work Phone: [facility] Work Phone: 01-22-2001 diphtheria, tetanus toxoids and acellular pertussis vaccine Nurse Wstr Work Phone: [facility] Work Phone: 01-22-2001 haemophilus influenz ae type b vaccine, HbOC conjugate Nurse Wstr Work Phone: [facility] Work Phone: 01-22-2001 poliovirus vaccine, inactivated Nurse Wstr Work Phone: [facility] Work Phone: 2000 diphtheria, tetanus toxoids and acellular pertussis vaccine Nurse Wstr Work Phone: [facility] Work Phone: 2000 haemophilus influenz ae type b vaccine, HbOC conjugate Nurse Wstr Work Phone: [facility] Work Phone: 2000 hepatitis B vaccine, pediatric or pediatric/adolescent dosage Nurse Wstr Work Phone: [facility] Work Phone: 2000 poliovirus vaccine, inactivated Nurse Wstr Work Phone: [facility] Work Phone: 2000 diphtheria, tetanus toxoids and acellular pertussis vaccine Nurse Wstr Work Phone: [facility] Work Phone: 2000 haemophilus influenz ae type b vaccine, HbOC conjugate Nurse Wstr Work Phone: [facility] Work Phone: 2000 hepatitis B vaccine, pediatric or pediatric/adolescent dosage Nurse Wstr Work Phone: [facility] Work Phone: 2000 poliovirus vaccine, inactivated Nurse Wstr Work Phone: [facility] Work Phone: Payers Date Payer Category Payer Unknown [id number] 2009 Unknown [id number] Social History Date Type Detail Facility Start: 06-16-2022 End: 06-21-2022 Tobacco smoking status NHIS Ex-smoker [facility] Work Phone: End: 06-02-2022 History of tobacco use Current smoker [facility] Work Phone: End: 06-02-2022 History of tobacco use Cigarette Smoker [facility] Work Phone: Start: 06-16-2022 End: 06-21-2022 Tobacco use and exposure Smokeless tobacco non-user [facility] Work Phone: Start: 06-16-2022 End: 11-22-2023 Alcohol intake Current non-drinker of alcohol (finding) [facility] Start: 06-16-2022 Education 11 [facility] Start: 06-16-2022 Tobacco Comment mother outside [facility] Start: 04-25-2022 [facility] Start: 2000 Sex Assigned At Not on file [facility] Start: 06-06-2022 End: 06-23-2022 Exposure to SARS-CoV-2 (event) Not sure [facility] Work Phone: Start: 06-14-2023 End: 09-18-2023 History of Social function [facility] Start: 06-14-2023 End: 09-18-2023 Tobacco use panel [facility] National Score (1-10 0), lower number is lower risk 46 [facility] Goals Date Patient Goal Desired Activity /State Personal health goal Clinical Notes 07-03-2014 to 11-22-2023 Quick Notes - Sienna Mantilla APRN.CNM - 11/22/2023 2:23 PM ESTPatient InstructionsPrenatal Quick Notes - Kenia Bowen - 11/14/2023 3:59 PM ESTPatient InstructionsPatient Instructions Note Date & Type Note Facility 11-22-2023 Miscellaneous Notes Laquita Patterson is a 23 year old female who presents at 13w5d as an add on visit for lower abdominal pain on left side and lower back pain. Stated cramps and pain started around 2130 and continued throughout the night and into today. Cramps are described as sharp pain . Feeling pressure when she sits or lays down. Feeling better today and less pain when stands up. Fluid intake is minimal. Recent bowel movement this morning. Denies any dysuria, or hematuria. Denies headache, visual changes, chest pain, shortness of breath, vaginal bleeding, leakage of fluid, or dysuria. Size appropriate for dates. GEN- no distress ABD- non tender with palpation, Negative McBurney sign Negative CVA tenderness ASSESSMENT/PLAN: 1. 13 weeks gestation of - ICD9: V22.2, ICD10: Z3A.13 (primary diagnosis) 2. Encounter for supervision of normal first in second trimester - ICD9: V22.0, ICD10: Z34.02 3. Intermittent left lower quadrant abdominal pain - ICD9: 789.04, ICD10: R10.32 4. Acute bilateral low back pain without sciatica - ICD9: 724.2, 338.19, ICD10: M54.50 - URINE OB DIP B/O- Positive for trace blood - URINE CULTURE- sent - Suspect dehydration- encouraged fluid intake including electrolytes - Reassurance provided- patient feeling nervous due to previous miscarriage - RTO- for already scheduled RICHAR Sienna Mantilla APRN.CNM documented in this encounter [facility] 11-22-2023 Instructions Cristofer Willis Cma - 11/22/2023 1:59 PM EST SEQUENTIAL SCREENINGS [facility] offers sequential screenings for women who are interested in screenings for chromosomal abnormalities and certain defects during a . The sequential screen combines ultrasound and blood tests to determine the risk of chromosomal abnormalities, including Down's Syndrome (Trisomy 21) and Trisomy 18, as well as open neural tube defects including spina bifida. Ultrasound examination is performed between 11 weeks and 13 weeks gestational age. Blood tests are drawn after the ultrasound and again later in the between 15 and 21 weeks gestational age. Please let your physician know if you are interested in this testing. It will require an appointment with our marine services technician. This is not an ultrasound performed by a physician in our office during a routine visit. SIGNS AND SYMPTOMS OF LABOR 1. Contractions every 10 minutes or more often 2. Clear, pink, or brownish fluid (water) leaking from vagina 3. Feeling that baby is pushing down, pressure 4. Low, dull backache 5. Cramps that feel like a period 6. Cramps with or without diarrhea If you notice any of the above symptoms, contact our office at [phone] and ask to speak with a nurse. After hours, you can call doctors registry at [phone] OR call [facility] at [phone] and ask to have the doctor resolute professional paged. If you consider this an emergency, dial 9-4-3 or go to your nearest emergency department. NEED HELP? Are you dealing with a violent or abusive relationship? Are you a victim of rape or sexual assult? Call [facility] ([place]) 24 hour Crisis Hotline: 448.846.6578 or 650-112-9135. MANUAL Your Guide to a Healthy manual is now on-line. Visit [email or web address] ncyGuide to download your free copy documented in this encounter [facility] 11-14-2023 Miscellaneous Notes S: Laquita Patterson is a 23 year old female who presents at 12w4d with LISETTE:05/24/2024, by Ultrasound. Here today for NT Ultrasound and for a routine visit. Denies headache, visual changes, chest pain, shortness of breath, vaginal bleeding, leakage of fluid, or dysuria. Feeling well. continues to have N/V but only once a day (2-3 emesis in that morning episode) O: See flow sheet Gen: No apparent distress, Abd: nontender ASSESSMENT/PLAN: 1. Encounter for supervision of normal first in second trimester - OBSTETRIC ULTRASOUND for NT 2. Nausea and vomiting of , antepartum: Still having emesis qam , vomiting 2-3 x per episode. But states feeling so much better. Eats goldfish as soon as wakes up. Tries to keep something in her stomach. Was taking B6 and Unisom. Cut dosage of Unisom in half, then stopped both now, was feeling too sleepy. 3. related fatigue in first trimester - is feeling much more energy now. 4. History of drug abuse (HCC) - Is no longer smoking, vaping or using marijuana. 5. PTL precautions reviewed and when to call 6. RTO 4 weeks 7. Reviewed Carrier Screening, MaterniTi 21, timing of all screening tests. Pt will check her insurance and decide what she would like. 8. Discussed option of Centering care. Pt expressing interest. Raheem DAWSON TEACHING ANNUAL GIVING MANAGER NOTE OF PERSONAL INVOLVEMENT IN CARE: I have interviewed the patient and updated the midwifery student's PFS history, and ROS as necessary. I have re-performed the HPI, Physical Examination, Assessment and Plan. Dayna Farrell APRN.CNM documented in this encounter [facility] 11-14-2023 Instructions Dayna Farrell APRN.CNM - 11/14/2023 2:31 PM EST CenteringPregnancy at [facility] CenteringPregnancy is care that includes a traditional visit with additional time and attention in a group setting. You will meet with your provider and other women who are due near the same time for 10 sessions during your . CenteringPregnancy is a way for you to share learning and experiences with other women and to be an active participant in your own healthcare. What do CenteringPregnancy appointments usually include? ? Your care visit - Follows standard visit schedule ? Your weight, blood pressure, and heart rate monitoring ? Important information and resources for you and your baby ? Time to talk about , childbirth, and family with a group of women who are going through the same experiences *support person welcome! [facility] CenteringPregnancy [facility] CenteringPregnancy group #2 with Dayna Farrell CNM and Sienna Mantilla CNM at 9:30 a.m. on these Wednesdays Due dates through December 2023 May 31 - Session 1 June 28 - Session 2 July 26 - Session 3 August 23 - Session 4 September 13 - Session 5 September 27 - Session 6 October 11 - Session 7 October 25 - Session 8 November 08 - Session November 29 - Session 10 [facility] CenteringPregnancy group #3 with Dayna Farrell CNM and Sienna Mantilla CNM at 2:30 p.m. on these Wednesdays Due dates through May 2024 December 19 - Session 1 January 16 - Session 2 February 13 - Session 3 March 06 - Session 4 March 13 - Session 5 March 27 - Session 6 March 31 - Session 7 April 10 - Session 8 April 24 - Session 9 April 30 - Session 10 SEQUENTIAL SCREENINGS [facility] offers sequential screenings for women who are interested in screenings for chromosomal abnormalities and certain defects during a . The sequential screen combines ultrasound and blood tests to determine the risk of chromosomal abnormalities, including Down's Syndrome (Trisomy 21) and Trisomy 18, as well as open neural tube defects including spina bifida. Ultrasound examination is performed between 11 weeks and 13 weeks gestational age. Blood tests are drawn after the ultrasound and again later in the between 15 and 21 weeks gestational age. Please let your physician know if you are interested in this testing. It will require an appointment with our marine services technician. This is not an ultrasound performed by a physician in our office during a routine visit. SIGNS AND SYMPTOMS OF LABOR 1. Contractions every 10 minutes or more often 2. Clear, pink, or brownish fluid (water) leaking from vagina 3. Feeling that baby is pushing down, pressure 4. Low, dull backache 5. Cramps that feel like a period 6. Cramps with or without diarrhea If you notice any of the above symptoms, contact our office at [phone] and ask to speak with a nurse. After hours, you can call doctors registry at [phone] OR call [facility] at [phone] and ask to have the doctor resolute professional paged. If you consider this an emergency, dial 06-16- or go to your nearest emergency department. NEED HELP? Are you dealing with a violent or abusive relationship? Are you a victim of rape or sexual assult? Call [facility] ([place]) 24 hour Crisis Hotline: 511.635.2182 or 683-954-4183. MANUAL Your Guide to a Healthy manual is now on-line. Visit [email or web address] ncyGuide to download your free copy documented in this encounter [facility] 09-26-2023 Miscellaneous Notes Patient was seen in [facility] ER yesterday. See Portable Internet message. Left message for patient to call the office or view Portable Internet message. Please leave open for hCG quants. [...] hear back from the office today. Conchis Bee, SARANYA documented in this encounter [facility] 09-26-2023 Miscellaneous Notes Reviewed. Since visit at [facility], IUP seen but no pole, reassuring from first visit that early gestation. Will keep daljit with US and follow up with me on 10/03. Review bleeding precautions. Thank you, Dayna Farrell APRN.CNM [facility] ER Report printed and to [facility] to review. documented in this encounter [facility] 09-20-2023 Note HNO ID: [id number] Author: Dayna Farrell APRN.CNM Service: ? Author Type: Fur Examiner Type: Progress Notes Filed: 09/20/2023 12:59 PM Note Text: OB point of care ultrasound was performed. See imaging tab for details. Dayna Farrell APRN.CNM [facility] 09-20-2023 History of Present illness Narrative OB point of care ultrasound was performed. See imaging tab for details. Dayna Farrell APRN.CNM documented in this encounter [facility] 09-18-2023 Note HNO ID: [id number] Author: Dayna Farrell APRN.CNM Service: ? 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 [facility] 06-14-2023 Note HNO ID: [id number] Author: Palmer Barbour MD Service: ? Author Type: Physician Type: Progress Notes Filed: 06/14/2023 6:19 PM Note Text: Patient presents with: Rash: on face x 5 days, headache used lotrimin made worse HPI: Rash: Location: face (more on the left cheek), neck Duration: 5 days Pruritis: Yes Pain: No Change: maybe worsening Bleeding/ulceration/blister/pustu le: red raised rash Contacts with rash: No [...] worsening or not improving. Palmer Barbour MD [facility] 06-14-2023 History of Present illness Narrative Patient presents with: Rash: on face x 5 days, headache used lotrimin made worse HPI: Rash: Location: face (more on the left cheek), neck Duration: 5 days Pruritis: Yes Pain: No Change: maybe worsening Bleeding/ulceration/blister/pustu le: red raised rash Contacts with rash: No [...] Palmer Barbour MD documented in this encounter [facility] 12-29-2022 Note HNO ID: [id number] Author: SARA Quiroz Service: ? Author Type: Physician Employee Operations Examiner Type: Progress Notes Filed: 12/29/2022 4:21 PM [...] detail warranting prompt ER evaluation. SARA Quiroz [facility] 12-29-2022 Instructions SARA Quiroz - 12/29/2022 [...] urine. Chest pain. documented in this encounter [facility] 12-29-2022 History of Present illness Narrative This note was created using [employer] Subjective Laquita Patterson is a 22 year [...] evaluation. SARA Quiroz documented in this encounter [facility] 10-07-2022 Miscellaneous Notes Second call attempt, contact listed as Self does not ring, patient mother contact rings but does not go to . Patient has viewed results via [employer]. Vanda Galeas MA TC to pt. LM to call office, ask for triage nurse to get results. Onelia Merchant LPN Positive for influenza A negative for COVID and influenza B. documented in this encounter [facility] 09-01-2022 History of Present illness Narrative Radiology Service Progress Note PATIENT [...] 2022 12:06 PM documented in this encounter [facility] 08-30-2022 History of Present illness Narrative Laquita Patterson is a 22 [...] L0 SAB0 IAB0 Ectopic0 Multiple0 Live Births0 Rn Baby History LMP: 08/17/2022 (Exact Date), Having periods Age at Menarche: Age at First : Age at Menopause: Rn Baby History Comments: Sexual Activity: Yes; Male Contraception: [...] external genitalia normal, normal Bartholin's glands, urethra, [place]'s glands, no vulvar lesions, no cervical lesions, [...] 3 - Low documented in this encounter [facility] 06-23-2022 History of Present illness Narrative Obstetric History T0 L0 SAB0 [...] L0 SAB0 IAB0 Ectopic0 Multiple0 Live Births0 Rn Baby History LMP: 04/11/2022, Age at Menarche: Age at First : Age at Menopause: Rn Baby History Comments: Sexual Activity: Yes; Male Contraception: Condom PAST MEDICAL HISTORY Diagnosis Date Anemia Attempted suicide (HCC) 11/14/2016 Gigielbrittany x 10 days Chlamydia Migraine with aura 2014 ocp's contraindicated NEGATIVE MEDICAL HISTORY 2013 normal [...] Medical Decision Making Level: 3 - Low Shaista Arceo MD documented in this encounter [facility] 06-21-2022 History of Present illness Narrative Obstetric History T0 L0 SAB0 [...] L0 SAB0 IAB0 Ectopic0 Multiple0 Live Births0 Rn Baby History LMP: 04/11/2022, Age at Menarche: Age at First : Age at Menopause: Rn Baby History Comments: Sexual Activity: Yes; Male Contraception: [...] with plan. Reviewed bleeding & pain precautions. Shaista Arceo MD Medical Decision Making: Problems: Moderate: New problem with uncertain prognosis Data: Unique source(s) for external note(s) reviewed: 1 Unique test result(s) reviewed: 3+ Unique test(s) ordered: 2 Risk: Low: Low risk from testing/treatment Medical Decision Making Level: 4 - Moderate Shaista Acreo MD documented in this encounter [facility] 06-16-2022 Miscellaneous Notes DISTANCE HEALTH VISIT [...] screening. I have given her information to [employer] to check on insurance coverage for maternity 21+ test. Patient is considering genetic carrier screening testing. I have given her contact information for the [facility] to check on insurance Coverage. TKRN documented in this encounter [facility] documented as of this encounter (statuses as of 11/19/2023) [facility] of Past illness Narrative* Problem Noted Date Diagnosed Date Resolved Date Irregular menses 07/03/2014 11/07/2023 Heavy menses 07/03/2014 11/07/2023 Depression 12/27/2012 11/07/2023 Overview: Started on prozac 10mg 11/28 -- sees Marianna Hernandez at [facility]. Acne 12/27/2012 11/07/2023 documented as of this encounter (statuses as of 11/23/2023) [facility] Supervision of normal first , antepartum- Primary History of depression Personal history of other mental disorder History of drug abuse (HCC) Other, mixed, or unspecified nondependent drug abuse, in remission Quit smoking Personal history of tobacco use, presenting hazards to health Patient requested diagnostic testing Other specified examination [facility] Diagnosis Threatened - Primary Threatened , unspecified as to episode of care [facility] Diagnosis Complete - Primary Unspecified , without mention of complication, complete [facility]* Diagnosis Postcoital and contact bleeding- Primary Postcoital bleeding documented in this encounter [facility] note* Diagnosis BV (bacterial vaginosis)- Primary Vaginitis and vulvovaginitis, unspecified documented in this encounter [facility] note* Diagnosis Sore throat- Primary Acute pharyngitis documented in this encounter [facility] note* Diagnosis Rash of face- Primary Rash and other nonspecific skin eruption documented in this encounter [facility] note* Diagnosis Postcoital and contact bleeding Postcoital bleeding documented in this encounter [facility] note* Diagnosis with uncertain dates in first trimester- Primary documented in this encounter [facility] note* Diagnosis Spotting complicating , first trimester- Primary documented in this encounter [facility] note* Diagnosis Encounter for supervision of normal first in second trimester- Primary Supervision of normal first Nausea and vomiting of , antepartum Unspecified vomiting of , antepartum related fatigue in first trimester History of drug abuse (HCC) Other, mixed, or unspecified nondependent drug abuse, in remission documented in this encounter [facility] note* Diagnosis 13 weeks gestation of - Primary state, incidental Encounter for supervision of normal first in second trimester Supervision of normal first Intermittent left lower quadrant abdominal pain Acute bilateral low back pain without sciatica documented in this encounter [facility] for referral (narrative)* Diagnostic Procedure Only (Routine) - Authorized Specialty Diagnoses / Procedures Referred By Elbert neumann Referred To Contact [facility] Diagnoses Postcoital and contact bleeding Procedures US FEMALE PELVIS TRANSVAG US TRANSVAGINAL Michell Pop APRN.CNP [address] [place] [address] [facility] Referral ID Status Reason Start Date Expiration Date Visits Requested Visits Authorized [id number] Authorized Auto-Generat ed Referral 2 09/29/2023 1 1 [facility] Diagnostic Procedure Only (Routine) - Closed Specialty Diagnoses / Procedures Referred By Contac t Referred To Contact [facility] Diagnoses Postcoital and contact bleeding Procedures US FEMALE PELVIS TRANSVAG US TRANSVAGINAL Michell Pop APRN.CNP [address] [place] [address] [place] [id number] Referral ID Status Reason Start Date Expiration Date V isits Requested Visits Authorized [id number] Closed Auto-Generate d Referral 08/30/2022 09/29/2023 1 1 [facility] for referral (narrative)* Diagnostic Procedure Only (Routine) - Pending Review Specialty Diagnoses / Procedures Referred By Elbert t Referred To Contact [facility] Diagnoses Encounter for supervision of normal first in second trimester Procedures OBSTETRIC ULTRASOUND WHI US PREG UTERUS AFTER 1ST TRIMEST GESTATION Dayna Farrell APRN.CNM [address] [place] [address] [facility] [address] [place] [address] Referral ID Status Reason Start Date Expiration Date Visits Requested Visits Authorized [id number] Pending Review Auto-Generat ed Referral 11/14/2023 11/13/2024 1 1 [facility] Health Concerns Infection Onset Date Last [...] or prosecute any alcohol or drug abuse patient.[facility] the event this information is protected by the Federal Confidentiality of Alcohol and Drug Abuse Patient Records regulations: The Federal rules restrict any use of the information to criminally investigate or prosecute any alcohol or drug abuse patient.[facility] the event this information is protected by the Federal Confidentiality of Alcohol and Drug Abuse Patient Records regulations: The Federal rules restrict any use of the information to criminally investigate or prosecute any alcohol or drug abuse patient.[facility] the event this information is protected by the Federal Confidentiality of Alcohol and Drug Abuse Patient Records regulations: The Federal rules restrict any use of the information to criminally investigate or prosecute any alcohol or drug abuse patient.[facility] the event this information is protected by the Federal Confidentiality of Alcohol and Drug Abuse Patient Records regulations: The Federal rules restrict any use of the information to criminally investigate or prosecute any alcohol or drug abuse patient.[facility] the event this information is protected by the Federal Confidentiality of Alcohol and Drug Abuse Patient Records regulations: The Federal rules restrict any use of the information to criminally investigate or prosecute any alcohol or drug abuse patient.[facility] the event this information is protected by the Federal Confidentiality of Alcohol and Drug Abuse Patient Records regulations: The Federal rules restrict any use of the information to criminally investigate or prosecute any alcohol or drug abuse patient.[facility] Hospital[facility] the event this information is protected by the Federal Confidentiality of Alcohol and Drug Abuse Patient Records regulations: The Federal rules restrict any use of the information to criminally investigate or prosecute any alcohol or drug abuse patient.[facility] Hospital[facility] the event this information is protected by the Federal Confidentiality of Alcohol and Drug Abuse Patient Records regulations: The Federal rules restrict any use of the information to criminally investigate or prosecute any alcohol or drug abuse patient.[facility] Hospital[facility] the event this information is protected by the Federal Confidentiality of Alcohol and Drug Abuse Patient Records regulations: The Federal rules restrict any use of the information to criminally investigate or prosecute any alcohol or drug abuse patient.[facility] HospitalIn the event this information is protected by the Federal Confidentiality of Alcohol and Drug Abuse Patient Records regulations: The Federal rules restrict any use of the information to criminally investigate or prosecute any alcohol or drug abuse patient.[facility] HospitalIn the event this information is protected by the Federal Confidentiality of Alcohol and Drug Abuse Patient Records regulations: The Federal rules restrict any use of the information to criminally investigate or prosecute any alcohol or drug abuse patient.[facility] Hospital[facility] the event this information is protected by the Federal Confidentiality of Alcohol and Drug Abuse Patient Records regulations: The Federal rules restrict any use of the information to criminally investigate or prosecute any alcohol or drug abuse patient.[facility] Hospital[facility] the event this information is protected by the Federal Confidentiality of Alcohol and Drug Abuse Patient Records regulations: The Federal rules restrict any use of the information to criminally investigate or prosecute any alcohol or drug abuse patient.[facility] Reason for Visit (unrecogniz ed section [...] US FEMALE PELVIS TRANSVAG US TRANSVAGINAL Michell Pop, ROSA.REMELTER [address] [place] [address] [place] [id number] Referral ID Status Reason Start Date Expiration Date V isits Requested Visits Authorized [id number] Closed Auto-Generate d Referral 08/30/2022 09/29/2023 1 1 Reason Comments Early OB spotting Reason Onset Date Comments Care 11/14/2023 Reason Onset Date Comments Care 11/22/2023 Care Teams (unrecognized sec tion and content) [employer] Relationship Specialty Start Date End Date Eliezer Leo MD [address] [facility], [place] [id number] PCP - General Pediatrics 02/04/14 Inspector [employer] Relationship Specialty [place] [address] [place] [address] [place] [id number] PCP - General Pediatrics 02/04/14 Inspector [employer] Relationship Specialty Start Date End Date Eliezer Leo MD [address] [place] [address], [place] [id number] PCP - General Pediatrics 02/04/14 Inspector [employer] Relationship Specialty Start Date End Date Eliezer Leo MD [address] [place] [address], [place] [id number] PCP - General Pediatrics 02/04/14 Inspector [employer] Relationship Specialty Start Date End Date Eliezer Leo MD [address] [place] [address], [place] [id number] PCP - General Pediatrics 02/04/14 Inspector [employer] Relationship Specialty Start Date End Date Eliezer Leo MD [address] [place] [address], [place] [id number] PCP - General Pediatrics 02/04/14 Inspector [employer] Relationship Specialty Start Date End Date Colby Hussein MD [address] [place] [address], [place] [address] PCP - General Family Medicine 06/14/23 Inspector [employer] Relationship Specialty Start Date End Date Eliezer Leo MD [address] [place] [address], [place] [address] PCP - General Pediatrics 02/04/14 06/13/23 Inspector [employer] Relationship Specialty Start Date End Date Colby Hussein MD [address] [place] [address] PCP - General Family Medicine 06/14/23 Inspector [employer] Relationship Specialty Start Date End Date Colby Hussein MD [address] [place] [address] PCP - General Family Medicine 06/14/23 Inspector [employer] Relationship Specialty Start Date End Date Colby Hussein MD [address] [place], [place] [id number] PCP - General Family Medicine 06/14/23 Inspector [employer] Relationship Specialty Start Date End Date Colby Hussein MD [address] [place], [place] [id number] PCP - General Family Medicine 06/14/23 INFORMATION [...] BE BASED ON THE PRIMARY CLINICAL RECORDS. [employer] provides no warranty or guarantee of the accuracy or completeness of information in this document.
[2023-11-25 18:42] LABS: Absolute Lymphocyte Count 0.54 X10^3/uL (0.83-4.51); Absolute Neutrophil Count 10.1 X10^3/uL (2.0-7.7); Basophil# 0.03 X10^3/uL; Basophil% 0.3 % (0-1); Eosinophil# 0.02 X10^3/uL; Eosinophils% 0.2 % (0-5); Hematocrit 31.7 % (37-47); Lymphocyte # 0.54 X10^3/ul (0.83-4.51); Lymphocyte % 4.8 % (19-41); Mean Corp Hgb Conc 34.7 g/dL (32-36); Mean Corpuscular Volume 92.2 fL (81-99); Mean Platelet Vol. 9.7 fl (6.2-12.0); Monocyte# 0.48 X10^3/uL; Monocyte% 4.3 % (0-10); NRBC Flagged by Analyzer 0 % (0-5); Neutrophil # 10.05 X10^3/uL (2.7-7.7); POSITIVE DIFFERENTIAL YES; Platelet Count 194 K/mm3 (150-450); RBC Distribution Width CV 11.7 % (11.6-14.6); RBC Distribution Width SD 39.2 fl (35.1-43.9); Red Blood Count 3.44 M/mm3 (4.2-5.4); White Blood Count 11.2 K/mm3 (4.4-11.0)
--- NOTE | 2023-11-25 18:52 | EDS_ITS ---
HPI History of Present Illness Chief Complaint: Headache Narrative Narrative: 23-year-old female 16 weeks gestation presenting with headache. She states her SENIOR ELECTRICAL ENGINEER knows she has a headache. She was told to take Tylenol for this. She calls a migraine ., She has no history of migraines. She describes her headache as constant and severe. No photophobia or phonophobia. No aura. No neck pain or stiffness. No fevers or chills. No trauma. Patient states that she has been trying Tylenol at home but has not been holding it down very well. She also complains of nausea and vomiting which has been present since Monday. Patient states that she called her SENIOR ELECTRICAL ENGINEER today who wanted her to come to the emergency room to be checked out. Patient states that she felt like she was feverish although she checked her temperature is 99.1. She also might have chills and bodyaches. She denies dysuria, hematuria, urinary frequency. She checked her cell for COVID with a home test and this was negative. Denies coughing or shortness of breath. Denies chest pain. She has had some diarrhea which is mild. No black or bloody stools. PFSH PFSH Home Medications ondansetron 4 mg disintegrating tablet 4 mg PO Q8H PRN PRN Nausea #20 tabs 11/25/23 [Rx Last Taken Unknown] vit no.95-ferrous fumarate 28 mg-folic acid 800 mcg tablet () 1 tab PO DAILY 11/25/23 [History Last Taken Unknown] Allergy/AdvReac Type Severity Reaction Status Date / Time No Known Allergies Allergy Verified 11/25/23 17:28 Social History Smoking Status: Former smoker EXAM Physical Exam Const Vital Signs: 11/25/23 17:29 11/25/23 21:04 Temperature 98 F 99.1 F Temperature Source Temporal Pulse Rate 108 H 124 H Respiratory Rate 16 18 Blood Pressure 112/76 102/58 L Blood Pressure Mean 88 72 Pulse Ox 100 100 Oxygen Delivery Method Room Air Positive well nourished General Appearance ED: NAD; Negative for pallor HEENT Reports normocephalic and TM's clear atraumatic and trauma Tympanic Membrane ED: Yes TM's clear Eyes PERRL and EOMs intact bilaterally Cardio regular rate and regular rhythm GI Auscultation: normoactive bowel sounds Palpation: soft Back/Spine no CVA tenderness Neuro oriented x3 and CN's II-XII intact bilaterally Sensorium / Orientation: awake and alert Skin General Skin Exam: Negative for jaundice or pallor MDM MDM MDM Narrative Medical decision making narrative: Patient presenting with headache, nausea, vomiting. She is currently 16 weeks gestation. Denies urinary complaints. Differential includes migraine, atypical headache, dehydration, anemia, electro abnormalities. Patient treated with Reglan, Benadryl, IV fluids. CBC will be obtained to assess for blood cell count, hemoglobin, platelets. CMP to assess liver function, renal function, electrolytes, glucose. Urinalysis to assess for UTI. I do not believe she needs imaging currently. Will reevaluate. Blood work shows leukocytosis of 11.2. Hemoglobin 11.0 platelets 294. Renal function electrolytes within normal limits. This is a with exception of potassium 3.1. This will be repleted orally. Patient was given IV fluids and she feels better after Zofran. Urinalysis negative for infection but does show urine ketones. On reevaluation her headache is improved. Her nausea is improved. She request IV be removed from her arm. It is noted she is a little tachycardic but she feels better. Patient will be her friend for home. She was counseled she did test positive for COVID 19 and she was given return precautions for all of this. Patient knowledge understanding. Impression: 1. Nausea/vomiting 2. Headache 3. COVID-19 4. Hypokalemia Lab Data Attestation: I reviewed the patient's lab results. Labs: Laboratory Results - last 24 hr 11/25/23 11/25/23 18:25 19:05 WBC 11.2 H RBC 3.44 L Hgb 11.0 L Hct 31.7 L MCV 92.2 MCH 32.0 MCHC 34.7 RDW Std Deviation 39.2 RDW Coeff of Annie 11.7 Plt Count 194 MPV 9.7 Immature Gran % (Auto) 0.400 Neut % (Auto) 90.0 H Lymph % (Auto) 4.8 L [place] % (Auto) 4.3 Eos % (Auto) 0.2 Baso % (Auto) 0.3 Absolute Neuts (auto) 10.1 H Absolute Lymphs (auto) 0.54 L Nucleated RBC % 0 Sodium 135 L Potassium 3.1 L Chloride 106 Carbon Dioxide 20.0 L Anion Gap 9 BUN 8 Creatinine 0.45 L Estim Creat Clear Calc 130.45 Est GFR (MDRD) Af Amer 222 Est GFR (MDRD) Non-Af 183 BUN/Creatinine Ratio 17.8 Glucose 77 Calcium 9.2 Total Bilirubin 0.30 AST 112 H ALT 55 Alkaline Phosphatase 47 Total Protein 6.9 Albumin 3.5 Globulin 3.4 Albumin/Globulin Ratio 1.0 Urine Color Yellow Urine Clarity Clear Urine pH 6.0 Ur Specific [place] 1.020 Urine Protein Negative Urine Glucose (UA) Normal Urine Ketones 150 A* Urine Occult Blood 10 H Urine Nitrite Negative Urine Bilirubin Negative Urine Urobilinogen Normal Ur Leukocyte Esterase 25 H Urine RBC 0 SEEN Urine WBC 0-5 SEEN Ur Squamous Epith Cells 0-5 SEEN Urine Bacteria 0 SEEN Urine Mucus 0 SEEN Discharge Plan Triage Chief Complaint: Headache ED Provider: Eusebio Perry Dx/Rx/DC Orders Instructions: Coronavirus Disease 2019 (COVID-19): Overview, Self-Care for Headaches, ED Hypokalemia Prescriptions: New ondansetron 4 mg tablet,disintegrating 4 mg PO Q8H PRN PRN (Reason: Nausea) Qty: 20 0RF No Action PNV cmb#95-ferrous fumarate-FA [] 28 mg iron- 800 mcg tablet 1 tab PO DAILY Primary Care Provider: Vini Hussein Referrals: Vini Hussein MD [Primary Care Provider] - Disposition Disposition: Home, Self Care
[2023-11-25 18:59] LABS: AST(SGOT) 112 U/L (15-37); Alanine Aminotransfer ALT/SGPT 55 U/L (13-56); Albumin, Serum 3.5 g/dL (3.2-5.0); Alkaline Phosphatase 47 U/L (45-117); Anion Gap 9 (5-15); BUN 8 mg/dL (7-18); BUN/Creat Ratio 17.8 RATIO (10-20); Calcium,Total 9.2 mg/dL (8.5-10.1); Chloride 106 mmol/L (98-107); Creatinine, Serum 0.45 mg/dL (0.55-1.02); EST Glomerular Filtration Rate 183 mL/min (>60); Est Glom Filt Rate - Afr Amer 222 mL/min (>60); Estimated Creatinine Clearance 130.45 ml/min; Globulin 3.4 g/dL (2.2-4.2); Glucose 77 mg/dL (74-106); Potassium 3.1 mmol/L (3.5-5.1); Protein, Total 6.9 g/dL (6.4-8.2); Sodium Level 135 mmol/L (136-145)
[2023-11-25] MEDS: 0.9% Normal Saline (1000mL) 1,000 ML 999 ML IV (19:01)
[2023-11-25] MEDS: Metoclopramide 10 MG/2 ML Vial IV (19:01)
[2023-11-25] MEDS: DiphenhydrAMINE 50 MG/ML Syringe 25 MG IV (19:01)
[2023-11-25 19:11] LABS: Bacteria 0 SEEN /hpf (None Seen); Mucous, Urine 0 SEEN /hpf (<or=2+); Red Blood Cells-Urine 0 SEEN /hpf (0-5)
[2023-11-25 19:17] LABS: Color, Urine Yellow (Yellow); Glucose, Dipstick Normal (Normal); Leukocyte Esterase-Dipstick 25 /ul (Negative); Nitrite-Dipstick Negative (Negative); Occult Blood-Urine 10 /ul (Negative); Protein-Dipstick Negative (Negative); Urine Bilirubin Dipstick Negative (Negative); Urine Clarity Clear (Clear); Urine Urobilinogen Normal (Normal)
[2023-11-25 19:30] LABS: Ketone-Dipstick 150 mg/dl (Negative)
[2023-11-25 19:31] LABS: Squamous Epithelial Cells - UA 0-5 SEEN /hpf (5-10); White Blood Cells 0-5 SEEN /hpf (0-5)
[2023-11-25 21:04] VITALS: BP 102/58; PULSE 124; RESP 18; TEMP 37.3; O2SAT 100
[2023-11-25] MEDS: Potassium Chloride Oral Soln 20 MEQ/15 ML UDC 40 MEQ PO (21:44)
== END 2023-11-25 21:51 | disposition home or self-care (01) ==
PROVIDERS: Emergency Provider Student in an Organized Health Care Education/Training Program; PCP Family Medicine; Visit Provider Student in an Organized Health Care Education/Training Program
DX: O98.512 Other viral diseases complicating pregnancy, second trimester (principal); O99.282 Endocrine, nutritional and metabolic diseases complicating pregnancy, second trimester; E87.6 Hypokalemia; Z3A.16 16 weeks gestation of pregnancy; U07.1 COVID-19; O99.891 Other specified diseases and conditions complicating pregnancy; R11.2 Nausea with vomiting, unspecified; R19.7 Diarrhea, unspecified; Z87.891 Personal history of nicotine dependence
CPT/HCPCS: 80053; 81001; 85025; 87631; 96361; 96374; 96375; 99284; J7030; A4216

== ENCOUNTER 2023-11-26 10:10 | Emergency (ER) | payer BC, SELFPAY ==
[2023-11-26 10:11] VITALS: BP 104/66; PULSE 121; RESP 18; TEMP 37.5; O2SAT 96; BMI 18.1
--- NOTE | 2023-11-26 10:29 | EDS_ITS ---
HPI HPI - GI History of Present Illness Chief Complaint: Nausea/Vomiting Informant: patient Nausea/Vomiting/Emesis GI Symptom: Positive for Nausea and Vomiting Onset: Today and Yesterday Severity: Moderate Episodes: 13 Diarrhea/Melena/Hematochezia GI Symptom: Negative for Diarrhea, Melena or Hematochezia Associated Symptoms Associated Symptoms: Negative for Dysuria, Frequency, Hematuria or Urgency Narrative Narrative: 23-year-old female currently 14 weeks G2, P0 Ab1 with that being a miscarriage. She is known COVID-positive. She was seen yesterday in emergency department. Had labs done in the [facility] which were unremarkable other than positive COVID test. She has had nausea and vomiting the last several days. No diarrhea. No dysuria. Today sent in by her OB for additional IV fluids. Prior similar symptoms: Yes Recent Illness/Hospitalization: No PFSH PFSH Home Medications ondansetron 4 mg disintegrating tablet 4 mg PO Q8H PRN PRN Nausea #20 tabs 11/25/23 [Rx Last Taken Unknown] vit no.95-ferrous fumarate 28 mg-folic acid 800 mcg tablet () 1 tab PO DAILY 11/25/23 [History Last Taken Unknown] Allergy/AdvReac Type Severity Reaction Status Date / Time No Known Allergies Allergy Verified 11/26/23 10:11 Social History Smoking Status: Former smoker ROS ROS ED ROS Narrative Fever. Nausea and vomiting. Review of Systems ROS Unobtainable: Denies due to encephalopathy Constitutional Constitutional ED: Reports fever(s); Denies chills ENT ENT ED: Denies ear pain, rhinorrhea or sore throat Cardiovascular Cardiovascular: Denies chest pain Respiratory/Chest Respiratory/Chest: Denies cough or dyspnea Gastrointestinal Gastrointestinal: Reports nausea and vomiting; Denies abdominal pain, constipation, diarrhea or melena Genitourinary Genitourinary ED: Denies dysuria or hematuria Musculoskeletal Musculoskeletal: Denies arthralgias or back pain Integumentary Denies abscess or Abrasions Neurologic Neurologic: Denies headache(s) Psychiatric Psychiatric: Denies anxiety or depression Endocrine Endocrinology: Denies polydipsia or polyphagia Hematologic/Lymphatic Hematologic/Lymphatic: Denies easy bleeding or easy bruising Allergic/Immunologic Allergic/Immunologic ED: Denies mouth swelling or tongue swelling EXAM Physical Exam Narrative Exam Narrative: 12-year-old female vital signs stable temperature 98.5. She does not look septic or toxic. H EENT exam moist mucous members. Neck nontender no lym phadenopathy. Lungs clear to auscultation bilaterally. Heart tachycardic rate about 150 no murmur. Abdomen soft, nontender, nondistended normal bowel sounds no peritoneal signs. Moving all 4 extremities. Calves are nontender without edema or cords. Neurologically she is awake alert no focal motor deficits. Const Vital Signs: 11/26/23 10:11 Temperature 99.5 F H Temperature Source Temporal Pulse Rate 121 H Respiratory Rate 18 Blood Pressure 104/66 Blood Pressure Mean 78 Pulse Ox 96 Oxygen Delivery Method Room Air Positive well nourished and well developed; Negative for obese or unkempt General Appearance ED: well developed and NAD; Negative for unkempt or pallor Nutritional Appearance: Negative for obese HEENT Reports moist mucous membranes normocephalic and atraumatic; Negative for trauma or tenderness Eyes PERRL and EOMs intact bilaterally General Eye ED: Negative for pale conjunctiva or scleral icterus Neck no lymphadenopathy, supple and no JVD General: Negative for tenderness Carotids: Negative for other Lymph Lymphatic: Negative for other Resp normal respiratory effort and clear to auscultation bilaterally Effort and Inspection: respiratory distress Auscultation: Negative for rales, rhonchi, wheezes, diminished lung sounds or other Cardio regular rate, regular rhythm, S1 normal heart sound, S2 normal heart sound and no murmurs Rate: bradycardia; Negative for tachycardic Rhythm: Negative for abnormal rhythm or other GI non-tender, non-distended and no masses Inspection: Negative for abdominal distention Auscultation: normoactive bowel sounds Palpation: soft; Negative for tender, guarding or rebound tenderness present Back/Spine no CVA tenderness General Back: Negative for CVA tenderness Cervical Spine: Negative for cervical spine tenderness Thoracic Spine / Upper Back: Negative for thoracic spinal tenderness Lumbar Spine / Lower Back: Negative for lumbar spinal tenderness Coccyx: Negative for other Extremity Negative for full ROM General Extremety ED: Negative for edema, tenderness or other findings General Extremity: Negative for edema or other findings Neuro CN's II-XII intact bilaterally and moves all extremities Sensorium / Orientation: alert, oriented to person, oriented to place and oriented to time; Negative for orientation impaired, confused, lethargic or stuporous Motor Exam: strength 5/5 throughout Psych mental status grossly normal and thought process normal Appearance: Negative for unkempt Attitude: No agitated Mood & Affect: Negative for depressed, anxious or tearful Skin no wounds General Skin Exam: Negative for jaundice or pallor Lesions: no lesions Rashes: no rashes Trauma: Negative for abrasion Nails: Negative for discolored MDM MDM MDM Narrative Medical decision making narrative: 23-year-old female COVID-positive 14 weeks . Had labs and UA negative that were unremarkable. She was treated a liter normal saline. She already took Zofran at home and currently is not nauseated she does not want any more at this time. After IV fluids I will reassess her. Repeat exam patient doing well at 11:40 AM. Feels much better. She got a liter of fluid. She has been able to hold down p.o. fluids. She and her mom are comfortable with her being discharged home. She has Zofran at home. She will follow-up with her OB or return if feeling worse. History & Record Review Discussion w/independent historian: Patient Additional record(s) reviewed:: Prior inpatient record, Prior outpatient record, Prior ED visit and Prior labs Discharge Plan Triage Chief Complaint: Nausea/Vomiting ED Provider: Al Marrufo Dx/Rx/DC Orders Clinical Impression: Acute dehydration, COVID, Second trimester , Nausea & vomiting Instructions: ED Dehydration (Adult), ED Vomiting (Adult) Prescriptions: No Action PNV cmb#95-ferrous fumarate-FA [] 28 mg iron- 800 mcg tablet 1 tab PO DAILY ondansetron 4 mg tablet,disintegrating 4 mg PO Q8H PRN PRN (Reason: Nausea) Qty: 20 0RF Primary Care Provider: Vini Hussein Referrals: Martha Farrell CNM [Med Staff - Adv Practice Prof] - As Needed Vini Hussein MD [Primary Care Provider] - Activity Restrictions/Additional Instructions: Zofran as needed for nausea. Tylenol for fever. Plenty of fluids and rest. Gatorade, water 7-Up. Slowly increase diet as tolerated. Follow-up with your OB to ensure you are improving or return emergency department if feeling worse. Disposition Disposition: Home, Self Care
[2023-11-26] MEDS: 0.9% Normal Saline (1000mL) 1,000 ML 1000 ML IV (10:33)
--- OUTSIDE RECORDS SUMMARY | 2023-11-26 10:44 | XMS RPT_ITS | CCD ---
Author Name Unknown Address [address] [place] [address] Organization [facility] Care Team Providers Care Senior Stack Engineer Name Role Phone Eliezer Leo MD Primary Care Provider Keenan PATEL, Colby Parks Primary Care Provider Eliezer Leo MD Primary Care Provider Colby Hussein MD Primary Care Provider SIENNA MANTILLA Attending Unavailable COLBY HUSSEIN Primary Care Unavailabl e LEXY FARRELLICA Attending Unavailable COLBY HUSSEIN Primary Care Unavailabl e ELIEZER LEO Primary Care Unavailable DINAH, DAYNA Referring Unavailable JJ GORMAN Attending Unavailable COLBY HUSSEIN Primary Care Unavailabl SHAISTA Quijano Attending Unavailable LEXY FARRELLICA Referring Unavailable COLBY [...] Unavailable COLBY HUSSEIN Primary Care Unavailabl e JJ GORMAN Attending Unavailable LEXY FARRELLICA Referring Unavailable COLBY HUSSEIN Primary Care Unavailabl e COLBY HUSSEIN Primary Care Unavailabl e DARYN CORONA Referring Unavailable DARYN CORONA Referring Unavailable COLBY HUSSEIN Primary Care Unavailabl e DAYNA FARRELL Referring Unavailable COLBY HUSSEIN Primary Care Unavailabl e Medications Current Medications Medication Drug Class(es) Dates Sig (Normalized) Sig (Original) metoclopramide 10 mg oral tablet (3 sources) Dopamine-2 Receptor Antagonist Start: 10-31-2023 End: [...] lower quadrant pain] 11-22-2023 Episodic Anxiety disorders (15 sources) Anxiety disorder; Translations: [Anxiety disorder, unspecified] Onset: 02-07-2014 02-07-2014 Chronic Disorders usually diagnosed in infancy, childhood, or adolescence (15 sources) Attention deficit hyperactivity disorder, predominantly inattentive [...] Onset: 12-27-2012 10-11-2021 Chronic Other complications of (6 sources) High risk ; Translations: [Supervision of other high risk pregnancies, first trimester] Onset: 09-18-2023 09-18-2023 Episodic Other complications of (1 source) Spotting per vagina in ; Translations: [Spotting complicating , first trimester] 09-25-2023 Episodic Other complications of (4 sources) Hyperemesis gravidarum; Translations: [Vomiting of , [...] [Acute pharyngitis, unspecified] Episodic Residual codes; unclassified (6 sources) H/O: miscarriage; Translations: [Personal history of [...] unspecified spontaneous without complication] Episodic Substance-related disorders (17 sources) History of drug abuse; Translations: [Other psychoactive substance abuse, in remission] Onset: 06-16-2022 Chronic Past or Other Problems Problem Classification Problem Date Documented Da te Episodic/Chronic Malaise and fatigue (15 sources) Fatigue; Translations: [Other fatigue] Onset: 09-20-2013 [...] Time Vital Sign Value Performing Clinician Bertram hernandezy 11-22-2023 14:00-0500 Body weight 42.27 kg Sienna Mantilla APRN.NATALI Work Phone: [facility] 11-22-2023 14:00-0500 Diastolic blood pressure 62 mm[Hg] Sienna Mantilla ENGINEERING PRODUCTION WORKER.CNM Work Phone: [facility] 11-22-2023 14:00-0500 Systolic blood pressure 104 mm[Hg] Sienna Mantilla APRN.CNM Work Phone: [facility] 11-14-2023 14:33-0500 Body weight 41.64 kg Dayna Farrell APRN.CNM Work Phone: [facility] 11-14-2023 14:33-0500 Diastolic blood pressure 66 mm[Hg] Dayna Farrell APRN.CNM Work Phone: [facility] 11-14-2023 14:33-0500 Systolic blood pressure 100 mm[Hg] Dayna Farrell APRN.CNM Work Phone: [facility] 06-14-2023 17:54-0400 Body temperature 98.4 [degF] Palmer Barbour MD Work Phone: [facility] 06-14-2023 17:54-0400 Body weight 42.91 kg Palmer Barbour MD Work Phone: [facility] 06-14-2023 17:54-0400 Diastolic blood pressure 64 mm[Hg] Palmer Barbour MD Work Phone: [facility] 06-14-2023 17:54-0400 Heart rate 80 /min Palmer Barbour MD Work Phone: [facility] 06-14-2023 17:54-0400 Respiratory rate 16 /min aPlmer Barbour MD Work Phone: [facility] 06-14-2023 17:54-0400 Systolic blood pressure 100 mm[Hg] Palmer Barbour MD Work Phone: [facility] 12-29-2022 16:04-0400 Body temperature 98.4 [degF] Krislyn Aberegg PA Work Phone: [facility] 12-29-2022 16:04-0400 Body weight 42.19 kg Krislyn Aberegg PA Work Phone: [facility] 12-29-2022 16:04-0400 Diastolic blood pressure 64 mm[Hg] Krislyn Aberegg PA Work Phone: [facility] 12-29-2022 16:04-0400 Heart rate 69 /min Krislyn Aberegg PA Work Phone: [facility] 12-29-2022 16:04-0400 Respiratory rate 18 /min Krislyn Aberegg PA Work Phone: [facility] 12-29-2022 16:04-0400 SaO2% (BldA) [Mass fraction] 97 % Krislyn Aberegg PA Work Phone: [facility] 12-29-2022 16:04-0400 Systolic blood pressure 102 mm[Hg] Carolin Corey PA Work Phone: [facility] 08-30-2022 14:12-0500 Body weight 41.91 kg Michell [facility] ENGINEERING PRODUCTION WORKER.DRIP MOLDER Work Phone: [facility] 08-30-2022 14:12-0500 Diastolic blood pressure 60 mm[Hg] Michell Donn ENGINEERING PRODUCTION WORKER.DRIP MOLDER Work Phone: [facility] 08-30-2022 14:12-0500 Systolic blood pressure 92 mm[Hg] Michell Donn ENGINEERING PRODUCTION WORKER.DRIP MOLDER Work Phone: [facility] 06-23-2022 11:25-0400 Body weight 42.64 kg Shaista Tanner MD Work Phone: [facility] 06-23-2022 11:25-0400 Diastolic blood pressure 56 mm[Hg] Shaista Tanner MD Work Phone: [facility] 06-23-2022 11:25-0400 Systolic blood pressure 94 mm[Hg] Shaista Tanner MD Work Phone: [facility] 06-21-2022 10:33-0400 Body weight 41.91 kg Shaista Tanner MD Work Phone: [facility] 06-21-2022 10:33-0400 Diastolic blood pressure 58 mm[Hg] Shaista Tanner MD Work Phone: [facility] 06-21-2022 10:33-0400 Systolic blood pressure 112 mm[Hg] Shaista Tanner MD Work Phone: [facility] Encounters Encounter Date Encounter Type Care Provider Facility Start: 11-25-2023 ambulatory Divya Freeman RN NURSE AUTO MECHANIC APPRENTICE Procedures Date Procedure Procedure Detail Performing Clinician Start: 11-22-2023 Urnls dip stick/tabl et rgnt auto w/o microscopy Sienna Mantilla ENGINEERING PRODUCTION WORKER.CNM Work Phone: Start: 09-18-2023 Antibody screen SARAH MANTILLA Plan of Treatment Date Care Activity Detail Author Start: 11-16-2024 PAP TESTING PAP TESTING [facility] Start: 11-16-2024 Screening for malign ant neoplasm of cervix Pap Testing [facility] Start: 09-18-2024 Chlamydia Screening (18-24) Chlamydia Screening (18-24) [facility] Start: 09-18-2024 GC (Gonorrhea) Screening (18-24) GC (Gonorrhea) Screening (18-24) [facility] Start: 09-18-2024 Screening for Chlamy irwin trachomatis Chlamydia Screening (18-) [facility] Start: 11-14-2023 End: 11-14-2024 OBSTETRIC ULTRASOUND WHI OBSTETRIC ULTRASOUND WHI Anc Imaging Routine Encounter for supervision of normal first in second trimester Expected: 11/14/2023, Expires: 11/14/2024 [facility] Work Phone: Immunizations Immunization Date Immunization Notes Care Provider Rashmi valente 08-23-2019 Human Papillomavirus 9-valent vaccine Nurse [facility] Work Phone: [facility] Work Phone: 02-26-2019 Human Papillomavirus 9-valent vaccine Nurse Wstr Work Phone: [facility] Work Phone: 01-22-2018 Human Papillomavirus 9-valent vaccine Nurse Wstr Work Phone: [facility] 07-11-2017 influenza, injectabl e, quadrivalent, contains preservative Nurse tr Work Phone: [facility] 07-11-2017 meningococcal polysaccharide (groups A, C, Y and W-135) diphtheria toxoid conjugate vaccine (MCV4P) Nurse [facility] Work Phone: [facility] 07-11-2017 influenza virus vacc ine, unspecified formulation 1 Work Phone: [facility] 10-25-2012 influenza virus vacc ine, live, attenuated, for intranasal use Nurse tr Work Phone: [facility] 05-20-2005 diphtheria, tetanus toxoids and acellular pertussis vaccine Nurse tr Work Phone: [facility] Work Phone: 05-18-2005 measles, mumps and rubella virus vaccine Nurse tr Work Phone: [facility] Work Phone: 05-28-2001 measles, mumps and rubella virus vaccine Nurse Wstr Work Phone: [facility] Work Phone: 05-28-2001 varicella virus vaccine Nurs e Wstr Work Phone: [facility] Work Phone: 05-07-2001 hepatitis B vaccine, pediatric or pediatric/adolescent dosage Nurse Wstr Work Phone: [facility] Work Phone: 01-22-2001 diphtheria, tetanus toxoids and acellular pertussis vaccine Nurse Wstr Work Phone: [facility] Work Phone: 01-22-2001 haemophilus influenz ae type b vaccine, HbOC conjugate Nurse Wstr Work Phone: [facility] Work Phone: 01-22-2001 poliovirus vaccine, inactivated Nurse Wstr Work Phone: [facility] Work Phone: 2000 diphtheria, tetanus toxoids and acellular pertussis vaccine Nurse Wstr Work Phone: [facility] Work Phone: 2000 haemophilus influenz ae type b vaccine, HbOC conjugate Nurse Wstr Work Phone: [facility] Work Phone: 2000 hepatitis B vaccine, pediatric or pediatric/adolescent dosage Nurse Wstr Work Phone: [facility] Work Phone: 2000 poliovirus vaccine, inactivated Nurse Wstr Work Phone: [facility] Work Phone: 2000 diphtheria, tetanus toxoids and acellular pertussis vaccine Nurse Wstr Work Phone: [facility] Work Phone: 2000 haemophilus influenz ae type b vaccine, HbOC conjugate Nurse Wstr Work Phone: [facility] Work Phone: 2000 hepatitis B vaccine, pediatric or pediatric/adolescent dosage Nurse Wstr Work Phone: [facility] Work Phone: 2000 poliovirus vaccine, inactivated Nurse Wstr Work Phone: [facility] Work Phone: Payers Date Payer Category Payer Unknown [id number] 2009 Unknown [id number] Social History Date Type Detail Facility Start: 06-16-2022 End: 06-21-2022 Tobacco smoking status NHIS Ex-smoker [facility] Work Phone: End: 06-02-2022 History of tobacco use Current smoker [facility] Work Phone: End: 06-02-2022 History of tobacco use Cigarette Smoker [facility] Work Phone: Start: 06-16-2022 End: 06-21-2022 Tobacco use and exposure Smokeless tobacco non-user [facility] Work Phone: Start: 06-16-2022 End: 11-22-2023 Alcohol intake Current non-drinker of alcohol (finding) [facility] Start: 06-16-2022 Education 11 [facility] Start: 06-16-2022 Tobacco Comment mother outside [facility] Start: 04-25-2022 [facility] Start: 2000 Sex Assigned At Not on file [facility] Start: 06-06-2022 End: 06-23-2022 Exposure to SARS-CoV-2 (event) Not sure [facility] Work Phone: Start: 06-14-2023 End: 09-18-2023 History of Social function [facility] Start: 06-14-2023 End: 09-18-2023 Tobacco use panel [facility] National Score (1-10 0), lower number is lower risk 46 [facility] Goals Date Patient Goal Desired Activity /State Personal health goal Clinical Notes 07-03-2014 to 11-25-2023 Telephone Encounter - Divya Freeman RN - 11/25/2023 4:37 PM ESTPrenatal Quick Notes - Sienna MantillaAPRN.CNM - 11/22/2023 2:23 PM ESTPatient InstructionsPatient InstructionsPatient Instructions Note Date & Type Note Facility 11-25-2023 Miscellaneous Notes Reason for call: 13 weeks 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 Needs to speak with compressor station engineer chief provider. Outcome: Conferenced to [place] Stereotyper Apprentice provider answering service to speak with compressor station engineer chief. GO TO THE EMERGENCY ROOM OR CALL 911 IF: * You develop any new symptoms * Your condition worsens * You are concerned or anxious about your condition for any other reason. If you have any questions, you can call Nurse combination welder apprentice back. documented in this encounter [facility] 11-22-2023 Miscellaneous Notes Laquita Patterson is a [...] Sienna Mantilla APRN.CNM documented in this encounter [facility] 11-22-2023 Instructions Cristofer Willis Cma - 11/22/2023 1:59 PM EST SEQUENTIAL SCREENINGS The [facility] offers sequential screenings for women who [...] It will require an appointment with our sow farm technician. This is not an ultrasound performed [...] the above symptoms, contact our office at [phone] and ask to speak with a nurse. After hours, you can call doctors registry at [phone] OR call [facility] at [phone] and ask to have the doctor compressor station engineer chief paged. If you consider this an emergency, dial 9--1 or go to your nearest emergency department. NEED HELP? Are you dealing with a violent or abusive relationship? Are you a victim of rape or sexual assult? Call [facility] ([place]) 24 hour Crisis Hotline: 127.755.4161 or 450-666-6878. MANUAL Your Guide to a Healthy manual is now on-line. Visit [email or web address] ncyGuide to download your free copy documented in this encounter [facility] 11-14-2023 Miscellaneous Notes S: Laquita Patterson [...] care. Pt expressing interest. Raheem DAWSON TEACHING ENGRAVER STEEL PLATE NOTE OF PERSONAL INVOLVEMENT IN CARE: I have interviewed the patient and updated the midwifery student's PFS history, and ROS as necessary. I have re-performed the HPI, Physical Examination, Assessment and Plan. Dayna Farrell APRN.CNM documented in this encounter [facility] 11-14-2023 Instructions Dayna Farrell APRN.CNM - 11/14/2023 2:31 PM EST CenteringPregnancy at [facility] CenteringPregnancy is care that includes a [...] through December 2023 May 31 - Session June 28 - Session 2 July 26 - Session August 23 - Session September 13 - Session September 27 - Session 6 October 11 - Session 7 October 25 - Session 8 November 08 - Session November 29 - Session 10 Yogi CenteringPregnancy group #3 with Dayna Farrell CNM and Sienna Mantilla CNM at 2:30 p.m. on these Wednesdays Due dates through May 2024 December 19 - Session January 16 - Session February 13 - Session March 06 - Session March 13 - Session March 27 - Session March 31 - Session 7 April 10 - Session April 24 - Session April 30 - Session 10 SEQUENTIAL SCREENINGS The [facility] offers sequential screenings for women who [...] It will require an appointment with our sow farm technician. This is not an ultrasound performed [...] the above symptoms, contact our office at [phone] and ask to speak with a nurse. After hours, you can call doctors registry at [phone] OR call [facility] at [phone] and ask to have the doctor compressor station engineer chief paged. If you consider this an emergency, dial 9-1-5 or go to your nearest emergency department. NEED HELP? Are you dealing with a violent or abusive relationship? Are you a victim of rape or sexual assult? Call [facility] ([place]) 24 hour Crisis Hotline: 193.971.3564 or 084-967-3088. MANUAL Your Guide to a Healthy manual is now on-line. Visit [email or web address] ncyGuide to download your free copy documented in this encounter [facility] 09-26-2023 Miscellaneous Notes Patient was seen in [facility] ER yesterday. See [employer] message. Left message for patient to call the office or view [employer] message. Please leave open for hCG quants. [...] Conchis Bee RN documented in this encounter [facility] 09-26-2023 Miscellaneous Notes Reviewed. Since visit at [facility], IUP seen but no pole, reassuring from first visit that early gestation. Will keep daljit with US and follow up with me on 10/03. Review bleeding precautions. Thank you, Dayna Farrell APRN.CNM [facility] ER Report printed and to [facility]ISS to review. documented in this encounter [facility] 09-20-2023 Note HNO ID: [id number] Author: Dayna Farrell APRN.CNM Service: ? Author Type: Critical Care Unit Nurse Type: Progress Notes Filed: 09/20/2023 12:59 PM Note Text: OB point of care ultrasound was performed. See imaging tab for details. Dayna Farrell APRN.CNM [facility] 09-20-2023 History of Present illness Narrative OB point of care ultrasound was performed. See imaging tab for details. Dayna Farrell APRN.CNM documented in this encounter [facility] 09-18-2023 Note HNO ID: [id number] Author: Dayna Farrell APRN.NATALI Service: ? 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 [facility] 06-14-2023 Note HNO ID: [id number] Author: Palmer Barbour MD Service: ? Author [...] worsening or not improving. Palmer Barbour MD [facility] 06-14-2023 History of Present illness Narrative Patient [...] Palmer Barbour MD documented in this encounter [facility] 12-29-2022 Note HNO ID: [id number] Author: SARA Quiroz Service: ? Author Type: Physician Crime Data Specialist Type: Progress Notes Filed: 12/29/2022 4:21 PM Note Text: This note was created using VocalZoomriter. Subjective Laquita Patterson is a 22 year [...] detail warranting prompt ER evaluation. SARA Quiroz [facility] 12-29-2022 Instructions SARA Quiroz - 12/29/2022 4:18 [...] urine. Chest pain. documented in this encounter [facility] 12-29-2022 History of Present illness Narrative This note was created using VocalZoomriter. Subjective Laquita Patterson is a 22 year [...] evaluation. SARA Quiroz documented in this encounter [facility] 10-07-2022 Miscellaneous Notes Second call attempt, contact listed as Self does not ring, patient mother contact rings but does not go to . Patient has viewed results via Taplister. Vanda Galeas MA TC to pt. LM to call office, ask for triage nurse to get results. Onelia Merchant LPN Positive for influenza A negative for COVID and influenza B. documented in this encounter [facility] 09-01-2022 History of Present illness Narrative [...] 2022 12:06 PM documented in this encounter [facility] 08-30-2022 History of Present illness Narrative [...] L0 SAB0 IAB0 Ectopic0 Multiple0 Live Births0 Footwear Sales Representative History LMP: 08/17/2022 (Exact Date), Having periods Age at Menarche: Age at First : Age at Menopause: Footwear Sales Representative History Comments: Sexual Activity: Yes; Male Contraception: [...] external genitalia normal, normal Bartholin's glands, urethra, Paxson's glands, no vulvar lesions, no cervical lesions, [...] 3 - Low documented in this encounter [facility] 06-23-2022 History of Present illness Narrative [...] L0 SAB0 IAB0 Ectopic0 Multiple0 Live Births0 Footwear Sales Representative History LMP: 04/11/2022, Age at Menarche: Age at First : Age at Menopause: Footwear Sales Representative History Comments: Sexual Activity: Yes; Male Contraception: [...] Decision Making Level: 3 - Low Shaista Tanner MD documented in this encounter [facility] 06-21-2022 History of Present illness Narrative [...] L0 SAB0 IAB0 Ectopic0 Multiple0 Live Births0 Footwear Sales Representative History LMP: 04/11/2022, Age at Menarche: Age at First : Age at Menopause: Footwear Sales Representative History Comments: Sexual Activity: Yes; Male Contraception: Condom PAST MEDICAL HISTORY Diagnosis Date Anemia Attempted suicide (HCC) 11/14/2016 [place] x 10 days Chlamydia Migraine with aura 2014 ocp's contraindicated NEGATIVE MEDICAL HISTORY 2012 normal color vision PAST SURGICAL HISTORY Procedure Laterality Date PAST SURGICAL HISTORY OF had frnace stuck in throat when was 1 year [...] plan. Reviewed bleeding & pain precautions. Shaista Tanner MD Medical Decision Making: Problems: Moderate: New problem with uncertain prognosis Data: Unique source(s) for external note(s) reviewed: 1 Unique test result(s) reviewed: 3+ Unique test(s) ordered: 2 Risk: Low: Low risk from testing/treatment Medical Decision Making Level: 4 - Moderate Shaista Tanner MD documented in this encounter [facility] 06-16-2022 Miscellaneous Notes DISTANCE HEALTH VISIT [...] screening. I have given her information to [employer] for Parents to check on insurance coverage for maternity 21+ test. Patient is considering genetic carrier screening testing. I have given her contact information for the [facility] to check on insurance Coverage. TKRN documented in this encounter [facility] documented as of this encounter (statuses as of 11/19/2023) [facility]09[facility] History of Past illness Narrative* Problem Noted Date Diagnosed Date Resolved Date Irregular menses 07/03/2014 11/07/2023 Heavy menses 07/03/2014 11/07/2023 Depression 12/27/2012 11/07/2023 Overview: Started on prozac 10mg 11/28 -- sees Marianna Hernandez at [facility] Acne 12/27/2012 11/07/2023 documented as of this encounter (statuses as of 11/23/2023) [facility] History of Past illness Narrative* Problem Noted Date Diagnosed Date Resolved Date Irregular menses 07/03/2014 11/07/2023 Heavy menses 07/03/2014 11/07/2023 Depression 12/27/2012 11/07/2023 Overview: Started on prozac 10mg 11/28 -- sees Marianna Hernandez at [facility]. Acne 12/27/2012 11/07/2023 documented as of this encounter (statuses as of 11/25/2023) [facility] Diagnosis Supervision of normal first , antepartum- Primary History of depression Personal history of other mental disorder History of drug abuse (HCC) Other, mixed, or unspecified nondependent drug abuse, in remission Quit smoking Personal history of tobacco use, presenting hazards to health Patient requested diagnostic testing Other specified examination [facility] Diagnosis Threatened - Primary Threatened , unspecified as to episode of care [facility] Diagnosis Complete - Primary Unspecified , without mention of complication, complete [facility] Diagnosis Postcoital and contact bleeding- Primary Postcoital bleeding [facility] Diagnosis BV (bacterial vaginosis)- Primary Vaginitis and vulvovaginitis, unspecified [facility] Diagnosis Sore throat- Primary Acute pharyngitis documented in this encounter [facility] [facility] Diagnosis Rash of face- Primary Rash and other nonspecific skin eruption [facility] Diagnosis Postcoital and contact bleeding Postcoital bleeding [facility] Diagnosis with uncertain dates in first trimester- Primary [facility] Diagnosis Spotting complicating , first trimester- Primary [facility] Diagnosis Encounter for supervision of normal first in second trimester- Primary Supervision of normal first Nausea and vomiting of , antepartum Unspecified vomiting of , antepartum related fatigue in first trimester History of drug abuse (HCC) Other, mixed, or unspecified nondependent drug abuse, in remission [facility] Diagnosis 13 weeks gestation of - Primary state, incidental Encounter for supervision of normal first in second trimester Supervision of normal first Intermittent left lower quadrant abdominal pain Acute bilateral low back pain without sciatica documented in this encounter [facility] for referral (narrative)* Diagnostic Procedure Only (Routine) - Authorized Specialty Diagnoses / Procedures Referred By Contac t Referred To Contact [facility] IMAGING Diagnoses Postcoital and contact bleeding Procedures US FEMALE PELVIS TRANSVAG US TRANSVAGINAL Michell Pop APRN.DRIP MOLDER [address] [place] [address] Us Imaging Referral ID Status Reason Start Date Expiration Date Visits Requested Visits Authorized [id number] Authorized Auto-Generat ed Referral 09/29/2023 1 1 [facility] for referral (narrative)* Diagnostic Procedure Only (Routine) - Closed Specialty Diagnoses / Procedures Referred By Elbert t Referred To Contact US IMAGING Diagnoses Postcoital and contact bleeding Procedures US FEMALE PELVIS TRANSVAG US TRANSVAGINAL Michell Pop APRN.DRIP MOLDER [address] [place] [address] [place] [address] Referral ID Status Reason Start Date Expiration Date V isits Requested Visits Authorized [id number] Closed Auto-Generate d Referral 08/30/2022 09/29/2023 1 1 [facility] for referral (narrative)* Diagnostic Procedure Only (Routine) - Pending Review Specialty Diagnoses / Procedures Referred By Contac t Referred To Contact [facility] Diagnoses Encounter for supervision of normal first in second trimester Procedures OBSTETRIC ULTRASOUND WHI US PREG UTERUS AFTER 1ST TRIMEST GESTATION Dayna Farrell APRN.CNM [address] [place] [address] [facility] [address] [place] [address] Referral ID Status Reason Start Date Expiration Date Visits Requested Visits Authorized [id number] Pending Review Auto-Generat ed Referral 11/14/2023 11/13/2024 1 1 [facility] Health Concerns Infection Onset Date Last [...] or prosecute any alcohol or drug abuse patient.[facility] the event this information is protected by the Federal Confidentiality of Alcohol and Drug Abuse Patient Records regulations: The Federal rules restrict any use of the information to criminally investigate or prosecute any alcohol or drug abuse patient.[facility] the event this information is protected by the Federal Confidentiality of Alcohol and Drug Abuse Patient Records regulations: The Federal rules restrict any use of the information to criminally investigate or prosecute any alcohol or drug abuse patient.[facility] the event this information is protected by the Federal Confidentiality of Alcohol and Drug Abuse Patient Records regulations: The Federal rules restrict any use of the information to criminally investigate or prosecute any alcohol or drug abuse patient.[facility] the event this information is protected by the Federal Confidentiality of Alcohol and Drug Abuse Patient Records regulations: The Federal rules restrict any use of the information to criminally investigate or prosecute any alcohol or drug abuse patient.[facility] the event this information is protected by the Federal Confidentiality of Alcohol and Drug Abuse Patient Records regulations: The Federal rules restrict any use of the information to criminally investigate or prosecute any alcohol or drug abuse patient.[facility] the event this information is protected by the Federal Confidentiality of Alcohol and Drug Abuse Patient Records regulations: The Federal rules restrict any use of the information to criminally investigate or prosecute any alcohol or drug abuse patient.[facility] the event this information is protected by the Federal Confidentiality of Alcohol and Drug Abuse Patient Records regulations: The Federal rules restrict any use of the information to criminally investigate or prosecute any alcohol or drug abuse patient.[facility] the event this information is protected by the Federal Confidentiality of Alcohol and Drug Abuse Patient Records regulations: The Federal rules restrict any use of the information to criminally investigate or prosecute any alcohol or drug abuse patient.[facility] the event this information is protected by the Federal Confidentiality of Alcohol and Drug Abuse Patient Records regulations: The Federal rules restrict any use of the information to criminally investigate or prosecute any alcohol or drug abuse patient.[facility] the event this information is protected by the Federal Confidentiality of Alcohol and Drug Abuse Patient Records regulations: The Federal rules restrict any use of the information to criminally investigate or prosecute any alcohol or drug abuse patient.[facility] the event this information is protected by the Federal Confidentiality of Alcohol and Drug Abuse Patient Records regulations: The Federal rules restrict any use of the information to criminally investigate or prosecute any alcohol or drug abuse patient.[facility] the event this information is protected by the Federal Confidentiality of Alcohol and Drug Abuse Patient Records regulations: The Federal rules restrict any use of the information to criminally investigate or prosecute any alcohol or drug abuse patient.[facility] the event this information is protected by the Federal Confidentiality of Alcohol and Drug Abuse Patient Records regulations: The Federal rules restrict any use of the information to criminally investigate or prosecute any alcohol or drug abuse patient.[facility] the event this information is protected by the Federal Confidentiality of Alcohol and Drug Abuse Patient Records regulations: The Federal rules restrict any use of the information to criminally investigate or prosecute any alcohol or drug abuse patient.[facility] Reason for Visit (unrecogniz ed section [...] FEMALE PELVIS TRANSVAG US TRANSVAGINAL Michell Pop APRN.DRIP MOLDER [address] [place] [address] Us Imaging [place] [address] Referral ID Status Reason Start Date Expiration Date V isits Requested Visits Authorized [id number] Closed Auto-Generate d Referral 08/30/2022 09/29/2023 1 1 Reason Comments Early OB spotting Reason Onset Date Comments Care 11/14/2023 Reason Onset Date Comments Care 11/22/2023 Reason Comments Information Care Teams (unrecognized sec tion and content) Senior Stack Engineer Relationship Specialty Start Date End Date Eliezer Leo MD [address] [place], [place] [address] PCP - General Pediatrics 02/04/14 Senior Stack Engineer Relationship Specialty Start Date End Date Eliezer Leo MD [address] [facility], [place] [id number] PCP - General Pediatrics 02/04/14 Senior Stack Engineer Relationship Specialty Start Date End Date Eliezer Leo MD [address] [facility], [place] [id number] PCP - General Pediatrics 02/04/14 Senior Stack Engineer Relationship Specialty Start Date End Date Eliezer Leo MD [address] [facility], [place] [address] PCP - General Pediatrics 02/04/14 Senior Stack Engineer Relationship Specialty Start Date End Date Eliezer Leo MD [address] [facility], [place] [id number] PCP - General Pediatrics 02/04/14 Senior Stack Engineer Relationship Specialty Start Date End Date Eliezer Leo MD [address] [facility], [place] [id number] PCP - General Pediatrics 02/04/14 Senior Stack Engineer Relationship Specialty Start Date End Date Colby Hussein MD [address] [place] [address], [place] [address] PCP - General Family Medicine 06/14/23 Senior Stack Engineer Relationship Specialty [place] [address] [place] [address], [place] [id number] PCP - General Pediatrics 02/04/14 06/13/23 Senior Stack Engineer Relationship Specialty Start Date End Date Colby Hussein MD [address] [place] [address], [place] [address] PCP - General Family Medicine 06/14/23 Senior Stack Engineer Relationship Specialty Start Date End Date Colby Hussein MD [address] [place], [place] [id number] PCP - [facility] Family [facility] 06/14/23 Senior Stack Engineer Relationship Specialty Start Date End Date Colby Hussein MD [address] [place], [place] [id number] PCP - General [facility] Medicine 06/14/23 Senior Stack Engineer Relationship Specialty Start Date End Date Colby Hussein MD [address] [place], [place] [phone] PCP - [facility] 06/14/23 Senior Stack Engineer Relationship Specialty Start Date End Date Colby Hussein MD [address] [place], [place] [id number] PCP - General Family [facility] 06/14/23 INFORMATION SOURCE (unrecogn ized section and [...] BE BASED ON THE PRIMARY CLINICAL RECORDS. [facility] [employer] [facility]. provides no warranty or guarantee of the accuracy or completeness of information in this document.
== END 2023-11-26 11:51 | disposition home or self-care (01) ==
LOC: ED 10:41
PROVIDERS: Emergency Provider Emergency Medicine; PCP Family Medicine; Visit Provider Emergency Medicine
DX: O99.282 Endocrine, nutritional and metabolic diseases complicating pregnancy, second trimester (principal); E86.0 Dehydration; O98.512 Other viral diseases complicating pregnancy, second trimester; U07.1 COVID-19; O21.8 Other vomiting complicating pregnancy; Z3A.14 14 weeks gestation of pregnancy; Z87.891 Personal history of nicotine dependence
CPT/HCPCS: 96360; 99283; J7030; A4216

== ENCOUNTER 2024-04-16 17:12 | Outpatient (CLI) | payer BC, SELFPAY ==
[2024-04-16 17:24] VITALS: BP 111/67; PULSE 99; RESP 16; TEMP 36.4; O2SAT 99
[2024-04-16 17:33] VITALS: BMI 26.9
[2024-04-16 18:22] LABS: ROM Internal Control Test YES-OK TO RESULT pt. (Internal QC); ROM Patient Test Negative (Negative); Record Kit Lot#, ROM+ K1866
[2024-04-16 18:35] LABS: Bacteria 0 SEEN /hpf (None Seen); Mucous, Urine 0 SEEN /hpf (<or=2+); Red Blood Cells-Urine 0 SEEN /hpf (0-5); Squamous Epithelial Cells - UA 0 SEEN /hpf (5-10); White Blood Cells 0 SEEN /hpf (0-5)
[2024-04-16 18:42] LABS: Color, Urine Straw (Yellow); Glucose, Dipstick Normal (Normal); Ketone-Dipstick Negative (Negative); Leukocyte Esterase-Dipstick Negative /ul (Negative); Nitrite-Dipstick Negative (Negative); Occult Blood-Urine Negative /ul (Negative); Protein-Dipstick Negative (Negative); Urine Bilirubin Dipstick Negative (Negative); Urine Clarity Clear (Clear); Urine Urobilinogen Normal (Normal)
[2024-04-16 22:04] VITALS: BP 113/68; PULSE 114; RESP 14; TEMP 36.3
[2024-04-16 22:05] VITALS: PULSE 121; O2SAT 98
[2024-04-16] MEDS: Acetaminophen 500 MG Tablet 1000 MG PO (23:06)
[2024-04-16] MEDS: DiphenhydrAMINE 25 MG Capsule PO (23:06)
--- NOTE | 2024-04-30 12:16 | OB.TRI.NOTE ---
HPI - General General Date of Service: 04/16/24 HPI Narrative EVERETT QUIJANO, is a 23 F who presents with pelvic pain. Maternal Data Information LISETTE Calculator Estimated Delivery Date Method Current WG Current Estimate 05/24/24 Manual 36w 4d Final LISETTE: 05/24/24 Gestational age: 34&5 PFSH PFSH Home Medications ?Medication ?Instructions ?Recorded ?Last Taken ?Type vit no.95-ferrous 1 tab PO DAILY 11/25/23 04/14/24 History fumarate 28 mg-folic acid 800 mcg tablet () Allergy/AdvReac Type Severity Reaction Status Date / Time No Known Allergies Allergy Verified 04/18/24 12:26 Social History Smoking Status: Former smoker NST FHR Rate Baby A Baseline: 125 Variability:: Moderate Accelerations:: 15 x 15 Decelerations:: None NST Reactive:: Yes Uterine Activity:: quiet Assessment & Plan (1) Threatened labor: QUALIFIERS: Trimester: third trimester Qualified Code(s): O47.03 - False labor before 37 completed weeks of gestation, third trimester PLAN: Reactive NST
== END 2024-04-16 23:18 | disposition home or self-care (01) ==
LOC: WPOUT 17:20 → WP 18:56
PROVIDERS: PCP Family Medicine; Referring Provider Obstetrics & Gynecology; Visit Provider Obstetrics & Gynecology
DX: O47.03 False labor before 37 completed weeks of gestation, third trimester (principal); Z87.891 Personal history of nicotine dependence; Z3A.37 37 weeks gestation of pregnancy
CPT/HCPCS: 59025; 59050; 81001; 84112; 87086; 99221; G0378; J0702

== ENCOUNTER 2024-04-18 12:15 | Outpatient (CLI) | payer BC, SELFPAY ==
[2024-04-18 12:27] VITALS: BMI 26.7
[2024-04-18 12:30] VITALS: BP 106/60; PULSE 108; RESP 16; TEMP 36.8
[2024-04-18] MEDS: Betamethasone/Betamethasone 30 MG/5 ML Vial 12 MG IM (12:45)
--- NOTE | 2024-04-30 12:12 | OB.TRI.NOTE ---
HPI - General General Date of Service: 04/16/24 HPI Narrative EVERETT QUIJANO, is a 23 F who presents with pelvic pain. Maternal Data Information Final LISETTE: 05/24/24 Gestational age: 34&5 PFSH PFSH Home Medications ?Medication ?Instructions ?Recorded ?Last Taken ?Type vit no.95-ferrous 1 tab PO DAILY 11/25/23 04/14/24 History fumarate 28 mg-folic acid 800 mcg tablet () Allergy/AdvReac Type Severity Reaction Status Date / Time No Known Allergies Allergy Verified 04/18/24 12:26 Social History Smoking Status: Former smoker NST FHR Rate Baby A Baseline: 130 Variability:: Moderate Accelerations:: 15 x 15 Decelerations:: None NST Reactive:: Yes Uterine Activity:: none Assessment & Plan (1) Threatened labor: QUALIFIERS: Trimester: third trimester Qualified Code(s): O47.03 - False labor before 37 completed weeks of gestation, third trimester PLAN: Reactive NST
== END 2024-04-18 12:51 | disposition home or self-care (01) ==
LOC: WPOUT 12:23 → WP 12:23
PROVIDERS: PCP Family Medicine; Referring Provider Advanced Practice Midwife; Visit Provider Advanced Practice Midwife
DX: O47.1 False labor at or after 37 completed weeks of gestation (principal); O99.891 Other specified diseases and conditions complicating pregnancy; R10.2 Pelvic and perineal pain; Z87.891 Personal history of nicotine dependence; Z3A.37 37 weeks gestation of pregnancy
CPT/HCPCS: 96372; 99221; G0378; J0702